=== PATIENT | female | born 1950 ===

== ENCOUNTER 2017-06-20 08:06 | Observation (INO) | payer MEDICARE, MEDICAID ==
[2017-06-20 08:12] VITALS: BMI 32.5
--- NOTE | 2017-06-20 08:38 | ED PDOC ---
HPI: General Adult Time Seen by Provider: 06/20/17 08:15 Chief Complaint (Nursing): Abdominal Pain Chief Complaint (Provider): Epigastric and chest pain History Per: Patient History/Exam Limitations: no limitations Onset/Duration Of Symptoms: Days (2) Additional Complaint(s): Patient is a 67 y/o female with a past medical history of hypertension, diabetes , and gastritis presenting to the emergency department for intermittent epigastric and chest pain since last night. Describes the pain as a burning sensation and notes having a productive cough for eight days. Reports having similar symptoms that have been ongoing for months. Denies fever, vomiting, diarrhea, syncope, weakness, or other complaints. PCP: Dr. Edilberto Srivastava Past Medical History Reviewed: Historical Data, Nursing Documentation, Vital Signs Vital Signs: Last Vital Signs Temp 97.9 F 06/21/17 12:43 Pulse 63 06/21/17 12:43 Resp 18 06/21/17 12:43 BP 131/70 06/21/17 12:43 Pulse Ox 98 06/21/17 12:43 - Medical History PMH: Anxiety, Asthma, Diabetes, Gastritis, Gall Bladder Disease, HTN, Hypercholesterolemia Denies: Chronic Kidney Disease - Surgical History Surgical History: Appendectomy, Cholecystectomy Other surgeries: Hysterectomy - Family History Family History: States: No Known Family Hx - Social History Current smoker - smoking cessation education provided: No Ex-Smoker (has not smoked in the last 12 months): No Alcohol: None Drugs: Denies - Home Medications Home Medications: Ambulatory Orders Medication Instructions Recorded Alprazolam [Xanax] 0.25 mg PO BID PRN 12/22/16 Metoprolol Succinate 100 mg PO DAILY 12/22/16 Valsartan/Hydrochlorothiazide 1 each PO DAILY 12/22/16 [Valsartan-Hctz 160-25 mg Tab] metFORMIN [glucOPHAGE] 500 mg PO DAILY 12/22/16 Esomeprazole Magnesium [Nexium] 40 mg PO DAILY 06/20/17 Fluticasone Propionate [Flonase] 2 spray LAN DAILY PRN 06/20/17 Rosuvastatin Calcium [Crestor] 10 mg PO DAILY 06/20/17 - Allergies Allergies/Adverse Reactions: Allergies Allergy/AdvReac Type Severity Reaction Status Date / Time Penicillins Allergy RASH Verified 06/20/17 08:16 FISH AdvReac RASH Verified 06/20/17 18:20 Review of Systems ROS Statement: Except As Marked, All Systems Reviewed And Found Negative Constitutional: Negative for: Fever, Weakness Cardiovascular: Positive for: Chest Pain (epigastric) Respiratory: Positive for: Cough (productive) Gastrointestinal: Negative for: Vomiting, Diarrhea Neurological: Negative for: Other (syncope) Physical Exam - Reviewed Nursing Documentation Reviewed: Yes Vital Signs Reviewed: Yes - Physical Exam Appears: Positive for: Well, Non-toxic, No Acute Distress Head Exam: Positive for: ATRAUMATIC, NORMAL INSPECTION, NORMOCEPHALIC Skin: Positive for: Normal Color, Warm, Dry Eye Exam: Positive for: Normal appearance, EOMI, PERRL ENT: Positive for: Normal ENT Inspection Neck: Positive for: Normal Cardiovascular/Chest: Positive for: Regular Rate, Rhythm. Negative for: Murmur Respiratory: Positive for: Normal Breath Sounds. Negative for: Accessory Muscle Use, Respiratory Distress Gastrointestinal/Abdominal: Positive for: Normal Exam, Soft. Negative for: Tenderness Back: Positive for: Normal Inspection Extremity: Positive for: Normal ROM. Negative for: Pedal Edema Neurologic/Psych: Positive for: Alert, Oriented (x3) - Laboratory Results Result Diagrams: 06/21/17 04:20 06/21/17 04:20 - ECG ECG: Positive for: Interpreted By Me, Viewed By Me ECG Rhythm: Positive for: Normal QRS, Sinus Rhythm. Negative for: ST/T Changes Rate: 69 O2 Sat by Pulse Oximetry: 98 (RA) Pulse Ox Interpretation: Normal Medical Decision Making Medical Decision Making: Time: 08:50 Initial impression: Chest pain and epigastric pain. Cough. Differential diagnoses include acute coronary syndrome, gastroesophageal reflux disease, and bronchitis. Initial plan: EKG Labs Chest X-ray Reevaluation 09:04 Chest x-ray reviewed. Findings noted as follows: LUNGS: No active pulmonary disease. PLEURA: No significant pleural effusion identified. No pneumothorax apparent. CARDIOVASCULAR: Normal. OSSEOUS STRUCTURES: No significant abnormalities. VISUALIZED UPPER ABDOMEN: Normal. OTHER FINDINGS: None. IMPRESSION: No interval acute cardiopulmonary disease appreciated. Scribe Attestation: Documented by Yuin Goff, acting as a scribe for Beny Garza MD. Provider Scribe Attestation: All medical record entries made by the Scribe were at my direction and personally dictated by me. I have reviewed the chart and agree that the record accurately reflects my personal performance of the history, physical exam, medical decision making, and the department course for this patient. I have also personally directed, reviewed, and agree with the discharge instructions and disposition. Disposition - Clinical Impression Clinical Impression: Chest pain - Patient ED Disposition Is Patient to be Admitted: Yes Discussed With : Jani Richardson Doctor Will See Patient In The: ED Counseled Patient/Family Regarding: Studies Performed, Diagnosis - Disposition Disposition Time: 12:50 Condition: FAIR - Pt Status Changed To: Hospital Disposition Of: Observation - POA Present On Arrival: None
[2017-06-20 09:02] LABS: BASO # 0.1 K/uL (0.0-0.2); BASO % 1.2 % (0.0-2.0); EOS # 0.3 K/uL (0.0-0.7); EOS % 3.5 % (0.0-4.0); HEMATOCRIT 37.4 % (34.0-47.0); LYMPH # 2.9 K/uL (1.0-4.3); LYMPH % 34.4 % (20.0-40.0); MEAN CELL VOLUME 87.3 fl (81.0-99.0); MEAN CORPUSCULAR HEMOGLOBIN 29.3 pg (27.0-31.0); MEAN CORPUSCULAR HGB CONC 33.6 g/dL (33.0-37.0); MEAN PLATELET VOLUME 7.8 fl (7.2-11.7); MONO # 0.7 K/uL (0.0-0.8); MONO % 8.3 % (0.0-10.0); NEUT # 4.5 K/uL (1.8-7.0); NEUT % 52.6 % (50.0-75.0); RED CELL DISTRIBUTION WIDTH 14.2 % (11.5-14.5); WHITE BLOOD COUNT 8.5 K/uL (4.8-10.8)
--- NOTE | 2017-06-20 09:05 | RAD ---
HISTORY: cough COMPARISON: Chest radiograph 12/05/2013. TECHNIQUE: Chest PA and lateral FINDINGS: LUNGS: No active pulmonary disease. PLEURA: No significant pleural effusion identified. No pneumothorax apparent. CARDIOVASCULAR: Normal. OSSEOUS STRUCTURES: No significant abnormalities. VISUALIZED UPPER ABDOMEN: Normal. OTHER FINDINGS: None. IMPRESSION: No interval acute cardiopulmonary disease appreciated.
[2017-06-20 09:23] LABS: ALB/GLOB RATIO 1.5 (1.0-2.1); ALKALINE PHOSPHATASE 91 U/L (38-126); ALT/SGPT 33 U/L (9-52); AST/SGOT 32 U/L (14-36); BILIRUBIN,TOTAL 0.5 mg/dl (0.2-1.3); BLOOD UREA NITROGEN 15 mg/dl (7-17); CALCIUM 9.5 mg/dL (8.4-10.2); CARBON DIOXIDE 28 mmol/L (22-30); CHLORIDE 93 mmol/L (98-107); GFR AFRICAN-AMERICAN > 60; GLUCOSE,RANDOM 126 mg/dL (65-105); LIPASE 246 U/L (23-300); POTASSIUM 3.3 MMOL/L (3.6-5.0); SODIUM 132 mmol/l (132-148); TOTAL PROTEIN 7.2 G/DL (6.3-8.2)
[2017-06-20] MEDS ORDERED: Potassium Chloride 20 mEq ER Tab PO ONE ×2 (12:48→16:29)
--- NOTE | 2017-06-20 13:44 | CP.PCM.HP ---
History of Present Illness - History of Present Illness History of Present Illness: 67 yo female with history of Anxiety, DM2, Asthma, HTN and HLDcame in because of midsternal chest pain since last night described like gas coming up from her stomach to her throat. Admitted put by PCP on Protonix but pain was not relieved. Present on Admission - Present on Admission Any Indicators Present on Admission: No History of DVT/PE: No History of Uncontrolled Diabetes: No Urinary Catheter: No Decubitus Ulcer Present: No Review of Systems - Review of Systems All systems: reviewed and no additional remarkable complaints except (aside from those mentioned above, 12 point system review were negative by me) Past Patient History - Infectious Disease Hx of Infectious Diseases: None - Tetanus Immunizations Tetanus Immunization: Unknown - Past Medical History & Family History Past Medical History?: Yes Past Family History: Reviewed and not pertinent - Past Social History Smoking Status: Never Smoked Alcohol: None Drugs: Denies Home Situation {Lives}: With Family - CARDIAC Hx Hypercholesterolemia: Yes Hx Hypertension: Yes - PULMONARY Hx Asthma: Yes - NEUROLOGICAL Hx Neurological Disorder: No - HEENT Hx HEENT Problems: No - RENAL Hx Chronic Kidney Disease: No - ENDOCRINE/METABOLIC Hx Endocrine Disorders: Yes Hx Diabetes Mellitus Type 2: Yes - HEMATOLOGICAL/ONCOLOGICAL Hx Blood Disorders: No - INTEGUMENTARY Hx Dermatological Problems: No - MUSCULOSKELETAL/RHEUMATOLOGICAL Hx Musculoskeletal Disorders: No - GASTROINTESTINAL Hx Gall Bladder Disease: Yes Hx Gastritis: Yes - GENITOURINARY/GYNECOLOGICAL Hx Genitourinary Disorders: No - PSYCHIATRIC Hx Anxiety: Yes - SURGICAL HISTORY Hx Appendectomy: Yes Hx Cholecystectomy: Yes - ANESTHESIA Hx Anesthesia: Yes Hx Anesthesia Reactions: No Meds Allergies/Adverse Reactions: Allergies Allergy/AdvReac Type Severity Reaction Status Date / Time Penicillins Allergy RASH Verified 06/20/17 08:16 Physical Exam - Constitutional Appears: No Acute Distress - Head Exam Head Exam: ATRAUMATIC - Eye Exam Eye Exam: absent: Scleral icterus - ENT Exam ENT Exam: Mucous Membranes Moist - Neck Exam Neck exam: Negative for: Meningismus - Respiratory Exam Respiratory Exam: absent: Rhonchi, Wheezes, Respiratory Distress - Cardiovascular Exam Cardiovascular Exam: REGULAR RHYTHM, +S1, +S2 - GI/Abdominal Exam GI & Abdominal Exam: Soft. absent: Tenderness - Rectal Exam Rectal Exam: Deferred - Neurological Exam Neurological exam: Alert, Oriented x3 - Psychiatric Exam Psychiatric exam: Normal Affect - Skin Skin Exam: Dry, Intact Results - Vital Signs Recent Vital Signs: Last Vital Signs Temp 98 F 06/20/17 12:40 Pulse 69 06/20/17 12:54 Resp 18 06/20/17 12:40 BP 134/66 06/20/17 12:40 Pulse Ox 98 06/20/17 12:54 - Labs Result Diagrams: 06/20/17 08:50 06/20/17 08:50 Labs: Laboratory Results - last 24 hr 06/20/17 06/20/17 08:50 08:50 WBC 8.5 RBC 4.28 Hgb 12.6 Hct 37.4 MCV 87.3 MCH 29.3 MCHC 33.6 RDW 14.2 Plt Count 215 MPV 7.8 Neut % (Auto) 52.6 Lymph % (Auto) 34.4 [place] % (Auto) 8.3 Eos % (Auto) 3.5 Baso % (Auto) 1.2 Neut # 4.5 Lymph # 2.9 Harvey # 0.7 Eos # 0.3 Baso # 0.1 Sodium 132 Potassium 3.3 L Chloride 93 L Carbon Dioxide 28 Anion Gap 14 BUN 15 Creatinine 0.9 Est GFR ( Amer) > 60 Est GFR (Non-Af Amer) > 60 Random Glucose 126 H Calcium 9.5 Total Bilirubin 0.5 AST 32 ALT 33 Alkaline Phosphatase 91 Troponin I < 0.0120 Total Protein 7.2 Albumin 4.3 Globulin 2.9 Albumin/Globulin Ratio 1.5 Lipase 246 Assessment & Plan (1) Chest pain Status: Acute Comment: serial Troponin and EKG. NTG SL prn. Morphine 2mg IV q 4hrs prn. ASA 81mg PO daily. Lipitor 10mg PO daily (2) Asthma Status: Acute Comment: asymptomatic. Duoneb q 4hrs prn for SOB/wheezing (3) HTN (hypertension) Status: Acute Comment: BP stable. continue Metoprolol and Valsartan/HCTZ (4) DM2 (diabetes mellitus, type 2) Status: Acute Comment: BS controlled. accuchek ACHS. Metformin 500mg PO daily. HgA1C, BMP in am (5) DVT prophylaxis Status: Acute Comment: Lovenox 40mg SC daily
--- NOTE | 2017-06-20 16:29 | CARD ---
APPROVED REPORT EKG Measurement Heart [id number] <Conclusion> Normal sinus rhythm Normal ECG
[2017-06-20] MEDS ORDERED: Alum-Mag Hydrox-Simethicone Susp (30 mL) PO PRN (22:12)
[2017-06-21 05:44] LABS: BASO # 0.1 K/uL (0.0-0.2); BASO % 0.7 % (0.0-2.0); EOS # 0.4 K/uL (0.0-0.7); EOS % 3.4 % (0.0-4.0); LYMPH # 4.2 K/uL (1.0-4.3); LYMPH % 40.2 % (20.0-40.0); MEAN CELL VOLUME 87.3 fl (81.0-99.0); MEAN CORPUSCULAR HEMOGLOBIN 29.2 pg (27.0-31.0); MEAN CORPUSCULAR HGB CONC 33.5 g/dL (33.0-37.0); MEAN PLATELET VOLUME 8.1 fl (7.2-11.7); MONO % 9.5 % (0.0-10.0); NEUT # 4.8 K/uL (1.8-7.0); NEUT % 46.2 % (50.0-75.0); RED CELL DISTRIBUTION WIDTH 14.5 % (11.5-14.5); WHITE BLOOD COUNT 10.4 K/uL (4.8-10.8)
[2017-06-21 06:03] VITALS: O2SAT 98
[2017-06-21 06:20] LABS: GLUCOSE,RANDOM 113 mg/dL (65-105)
[2017-06-21 06:21] LABS: BLOOD UREA NITROGEN 14 mg/dl (7-17); CALCIUM 9.5 mg/dL (8.4-10.2); CARBON DIOXIDE 29 mmol/L (22-30); CHLORIDE 90 mmol/L (98-107); GFR AFRICAN-AMERICAN > 60; POTASSIUM 3.4 MMOL/L (3.6-5.0); SODIUM 129 mmol/l (132-148)
[2017-06-21] MEDS ORDERED: Sodium Chloride 0.9% 1,000 ML IV SCH (07:30)
[2017-06-21 08:20] VITALS: RESP 18; TEMP 97.9
[2017-06-21] MEDS ORDERED: Enoxaparin 40 mg Syringe SC SCH (09:00)
[2017-06-21] MEDS ORDERED: Pantoprazole 40 mg EC Tab PO SCH (09:00)
[2017-06-21] MEDS ORDERED: VALSARTAN PO SCH (09:00)
[2017-06-21] MEDS ORDERED: HYDROCHLOROTHIAZIDE PO SCH (09:00)
[2017-06-21] MEDS ORDERED: Potassium Chloride 20 mEq/15 ml LIQ UD PO SCH (09:00)
[2017-06-21] MEDS ORDERED: Metoprolol Succinate 100 mg XL Tab PO SCH (09:00)
--- NOTE | 2017-06-21 09:09 | CP.PCM.DIS ---
Provider - Provider Date of Admission: 06/20/17 12:59 Attending physician: Jani Richardson MD Time Spent in preparation of Discharge (in minutes): 25 Diagnosis - Discharge Diagnosis (1) Chest pain Status: Acute Comment: pain relieved with nitroglycerin SL. pain likely due to gastritis. pt recently put on Protonix, recommend continuing with medication for improved efficacy. f/u with PMD (2) HTN (hypertension) Status: Acute Comment: continue home meds (3) Asthma Status: Acute Comment: asymptomatic. continue Flonase prn (4) DM2 (diabetes mellitus, type 2) Status: Acute Comment: blood sugars well controlled during hospital admission. continue Metformin (5) Anxiety Status: Acute Comment: continue Xanax Hospital Course - Lab Results Lab Results: Most Recent Lab Values WBC 10.4 K/uL (4.8-10.8) 06/21/17 04:20 RBC 4.24 Mil/uL (3.80-5.20) 06/21/17 04:20 Hgb 12.4 g/dL (12.0-16.0) 06/21/17 04:20 Hct 37.0 % (34.0-47.0) 06/21/17 04:20 MCV 87.3 fl (81.0-99.0) 06/21/17 04:20 MCH 29.2 pg (27.0-31.0) 06/21/17 04:20 MCHC 33.5 g/dL (33.0-37.0) 06/21/17 04:20 RDW 14.5 % (11.5-14.5) 06/21/17 04:20 Plt Count 204 K/uL (130-400) 06/21/17 04:20 MPV 8.1 fl (7.2-11.7) 06/21/17 04:20 Neut % (Auto) 46.2 % (50.0-75.0) L 06/21/17 04:20 Lymph % (Auto) 40.2 % (20.0-40.0) H 06/21/17 04:20 [place] % (Auto) 9.5 % (0.0-10.0) 06/21/17 04:20 Eos % (Auto) 3.4 % (0.0-4.0) 06/21/17 04:20 Baso % (Auto) 0.7 % (0.0-2.0) 06/21/17 04:20 Neut # 4.8 K/uL (1.8-7.0) 06/21/17 04:20 Lymph # 4.2 K/uL (1.0-4.3) 06/21/17 04:20 [place] # 1.0 K/uL (0.0-0.8) H 06/21/17 04:20 Eos # 0.4 K/uL (0.0-0.7) 06/21/17 04:20 Baso # 0.1 K/uL (0.0-0.2) 06/21/17 04:20 Sodium 129 mmol/l (132-148) L 06/21/17 04:20 Potassium 3.4 MMOL/L (3.6-5.0) L 06/21/17 04:20 Chloride 90 mmol/L (98-107) L 06/21/17 04:20 Carbon Dioxide 29 mmol/L (22-30) 06/21/17 04:20 Anion Gap 13 (10-20) 06/21/17 04:20 BUN 14 mg/dl (7-17) 06/21/17 04:20 Creatinine 0.8 mg/dL (0.7-1.2) 06/21/17 04:20 Est GFR ( Amer) > 60 06/21/17 04:20 Est GFR (Non-Af Amer) > 60 06/21/17 04:20 POC Glucose (mg/dL) 94 mg/dL (65-110) 06/21/17 05:32 Random Glucose 113 mg/dL (65-105) H 06/21/17 04:20 Calcium 9.5 mg/dL (8.4-10.2) 06/21/17 04:20 Total Bilirubin 0.5 mg/dl (0.2-1.3) 06/20/17 08:50 AST 32 U/L (14-36) 06/20/17 08:50 ALT 33 U/L (9-52) 06/20/17 08:50 Alkaline Phosphatase 91 U/L (38-126) 06/20/17 08:50 Troponin I < 0.0120 ng/mL (0.00-0.120) 06/21/17 01:09 Total Protein 7.2 G/DL (6.3-8.2) 06/20/17 08:50 Albumin 4.3 g/dL (3.5-5.0) 06/20/17 08:50 Globulin 2.9 gm/dL (2.2-3.9) 06/20/17 08:50 Albumin/Globulin Ratio 1.5 (1.0-2.1) 06/20/17 08:50 Lipase 246 U/L (23-300) 06/20/17 08:50 - Hospital Course Hospital Course: 67 y/o female with PMHx of DM II, HTN, HLD, asthma, and anxiety admitted to the hospital for epigastric and chest pain. Pt described the pain as gas-like and felt as though it was coming up from her stomach. Pt was recently prescribed Protonix for gastritis but has only been taking it a short time, approx 1-2 weeks. Pt denies experiencing F/C/N/V/SOB throughout her stay. Pt denied having any gastric or abdominal pain during her stay but admitted to feeling occasional gas and bloating at home prior to admission, and believes this was the cause of her chest discomfort. A CXR was performed which showed no acute cardiopulmonary disease, pleural effusion or pneumothorax. Serial troponins were performed with three consecutive negative values. An EKG was performed which showed a normal sinus rhythm. Pt's chest pain was treated with sublingual nitroglycerin and was resolved during her hospital stay. Pt was also given normal saline and potassium chloride to address her mild hyponatremia, hypochloremia and hypokalemia. Pt will be discharged home in stable condition and is advised to follow up with her PMD Dr. Srivastava. Discharge Exam - Head Exam Head Exam: ATRAUMATIC, NORMAL INSPECTION, NORMOCEPHALIC - Eye Exam Eye Exam: EOMI, Normal appearance, PERRL Pupil Exam: NORMAL ACCOMODATION, PERRL - ENT Exam ENT Exam: Mucous Membranes Moist - Neck Exam Neck exam: Full Rom, Normal Inspection Additional comments: non-tender, supple, no JVD - Respiratory Exam Respiratory Exam: NORMAL BREATHING PATTERN, UNREMARKABLE Additional comments: no wheezes or rales heard, no respiratory distress, no stridor - Cardiovascular Exam Cardiovascular Exam: REGULAR RHYTHM, +S1, +S2 Additional comments: no murmur, no gallop, no JVD - GI/Abdominal Exam GI & Abdominal Exam: Normal Bowel Sounds, Soft, Unremarkable Additional comments: no rebound tenderness, no distention - Rectal Exam Rectal Exam: Deferred - Extremities Exam Extremities exam: normal capillary refill, normal inspection, pedal pulses present - Back Exam Back exam: NORMAL INSPECTION - Neurological Exam Neurological exam: Alert, Oriented x3 - Psychiatric Exam Psychiatric exam: Normal Affect, Normal Mood - Skin Skin Exam: Intact, Normal Color Discharge Plan - Follow Up Plan Condition: STABLE Disposition: HOME/ ROUTINE Instructions: Gastritis (DC), Noncardiac Chest Pain (DC) Referrals: Edilberto Srivastava MD [Family Provider] -
[2017-06-21 12:44] VITALS: BP 131/70
[2017-06-21 19:49] VITALS: PULSE 69
== END 2017-06-21 15:30 | disposition home or self-care (01) ==
LOC: H.ER 08:06 → H.ERHOLD 12:59 → H.TEL 17:38
DX: R07.89 Other chest pain (principal); E87.1 Hypo-osmolality and hyponatremia; E87.6 Hypokalemia; E86.0 Dehydration; E87.8 Other disorders of electrolyte and fluid balance, not elsewhere classified; R19.7 Diarrhea, unspecified; I10 Essential (primary) hypertension; J45.909 Unspecified asthma, uncomplicated; E11.9 Type 2 diabetes mellitus without complications; F41.9 Anxiety disorder, unspecified; F32.9 Major depressive disorder, single episode, unspecified; E78.5 Hyperlipidemia, unspecified; E78.00 Pure hypercholesterolemia, unspecified; Z88.0 Allergy status to penicillin; Z91.013 Allergy to seafood
CPT/HCPCS: 36415; 71020; 80048; 80053; 82948; 83036; 83690; 84484; 85025; 93005; 99285; G0378; J1650; J7040

== ENCOUNTER 2017-12-17 19:53 | Emergency (ER) | payer MEDICARE, MEDICAID ==
[2017-12-17 19:54] VITALS: BMI 32.5
[2017-12-17 20:03] VITALS: TEMP 97.5
[2017-12-17] MEDS ORDERED: Sodium Chloride 0.9% 1,000 ML IV STA (20:22)
--- NOTE | 2017-12-17 20:29 | ED PDOC ---
HPI:Nausea, Vomiting, Diarrhea Chief Complaint (Provider): nausea/vomiting History Per: Patient History/Exam Limitations: no limitations Onset/Duration Of Symptoms: Hrs, Persistent Current Symptoms Are (Timing): Still Present Have you had recent travel within the past 21 days to any of the following countries: [place], [place], [place] or [place]?: No Context: Food Severity: Moderate Pain Scale Rating Of: 0 Quality Of Discomfort: Gas Associated Symptoms: Nausea, Vomiting Alleviating Factors: Rest Last Bowel Movement: Today Additional History Per: Patient Additional Complaint(s): 67 y/o F with DM2, HTN and Anxiety presents to clinic c/o nausea and vomiting. As per patient she started feeling nauseated, bloated, gassy right after lunch. She ate rice, lentils and eggs. She took tiff seltzer at home without improvement and due to persistent nausea since lunch she decided to come to ED, right outside the hosp she had 1 episode of NBNB vomit. Still feels nauseated. Denies fever, sick contacts, diarrhea or constipation. LBM today normal, denies melena, hematochezia. Patient states her BS are controlled and accuchecks this morning was 90s. She is taking all her meds as prescribed. <Amor Owens - Last Filed: 12/17/17 23:22> <Carlin Bynum - Last Filed: 12/18/17 01:53> Time Seen by Provider: 12/17/17 20:04 Chief Complaint (Nursing): Abdominal Pain Supervising Attending Note - Supervising Attending Note The Documented history was done by the: Physician Drier Tender Naphthalene The documented physical exam was done by the: Physician Drier Tender Naphthalene - Attestation: I have personally seen and examined this patient.: Yes I have fully participated in the care of the patient.: Yes I have reviewed all pertinent clinical information, including history, physical exam and plan: Yes <Carlin Bynum - Last Filed: 12/18/17 01:53> Past Medical History Vital Signs: Last Vital Signs Temp 97.5 F L 12/17/17 20:00 Pulse 79 12/17/17 20:00 Resp 16 12/17/17 20:00 BP 144/78 12/17/17 20:00 Pulse Ox 100 12/17/17 20:00 - Medical History PMH: Anxiety, Asthma, Diabetes, Gastritis, Gall Bladder Disease, HTN, Hypercholesterolemia Denies: Alzheimer's Disease, Anemia, Arthritis, Atrial Fibrillation, Bipolar Disorder, Bronchitis, CAD, Cardia Arrhythmia, CHF, COPD, Crohn's Disease, Dementia, Depression, Diverticulitis, Emphysema, Fractures, HIV, Hyperthyroidism , Hypothyroidism, Kidney Stones, Migraine, Mitral Valve Prolapse, Multiple Sclerosis, Osteoporosis, Pancreatitis, Paranoia, Parkinson's Disease, Peripheral Edema, Pneumonia, Post Traumatic Stress Disorder, Pulmonary Embolism , Chronic Kidney Disease, Rheumatoid Arthritis, Schizophrenia, Seizures, Sickle Cell Disease, Sexually Transmitted Disease, Sleep Apnea, TIA - Surgical History Surgical History: Appendectomy, Cholecystectomy Denies: CABG, Carotid Endarterectomy, Coronary Stent, Pacemaker, Tonsillectomy - Family History Family History: States: Unknown Family Hx <Amor Owens - Last Filed: 12/17/17 23:22> Vital Signs: Last Vital Signs Temp 97.5 F L 12/17/17 20:00 Pulse 63 12/17/17 23:40 Resp 18 12/17/17 23:40 BP 111/58 L 12/17/17 23:40 Pulse Ox 99 12/17/17 23:40 <Carlin Bynum - Last Filed: 12/18/17 01:53> - Home Medications Home Medications: Ambulatory Orders Medication Instructions Recorded Alprazolam [Xanax] 0.25 mg PO BID PRN 12/22/16 Metoprolol Succinate 100 mg PO DAILY 12/22/16 Valsartan/Hydrochlorothiazide 1 each PO DAILY 12/22/16 [Valsartan-Hctz 160-25 mg Tab] metFORMIN [glucOPHAGE] 500 mg PO DAILY 12/22/16 Esomeprazole Magnesium [Nexium] 40 mg PO DAILY 06/20/17 Fluticasone Propionate [Flonase] 2 spray LAN DAILY PRN 06/20/17 Rosuvastatin Calcium [Crestor] 10 mg PO DAILY 06/20/17 Ondansetron ODT [Zofran ODT] 4 mg PO Q6 PRN #8 odt 12/17/17 - Allergies Allergies/Adverse Reactions: Allergies Allergy/AdvReac Type Severity Reaction Status Date / Time Penicillins Allergy RASH Verified 06/20/17 08:16 FISH AdvReac RASH Verified 10/16/17 18:20 Review of Systems ROS Statement: Except As Marked, All Systems Reviewed And Found Negative Gastrointestinal: Positive for: Nausea, Vomiting, Other (gassiness, bloating) <Amor Owens - Last Filed: 12/17/17 23:22> Physical Exam - Physical Exam Appears: Positive for: Well, No Acute Distress Skin: Positive for: Normal Color, Warm Eye Exam: Positive for: PERRL ENT: Negative for: Pharyngeal Erythema, Tonsillar Exudate Neck: Positive for: Painless ROM Cardiovascular/Chest: Positive for: Regular Rate, Rhythm, Chest Non Tender. Negative for: Edema, Murmur Respiratory: Positive for: Normal Breath Sounds. Negative for: Crackles, Rales , Rhonchi, Wheezing, Respiratory Distress Gastrointestinal/Abdominal: Positive for: Normal Exam, Soft. Negative for: Tenderness, Distended, Guarding, Rebound Extremity: Negative for: Tenderness, Calf Tenderness Neurologic/Psych: Positive for: Alert, Oriented. Negative for: Motor/Sensory Deficits <Amor Owens - Last Filed: 12/17/17 23:22> - Laboratory Results Result Diagrams: 12/17/17 20:45 12/17/17 20:45 - ECG O2 Sat by Pulse Oximetry: 100 - Progress ED Course And Treament: Revaluated at 11PM Patient's symptoms resolved after Zofran/Pepcid/IV fluids She has microscopic hematuria on UA and slightly elevated AST and WBC No sings of source of infection and patient is afebrile Advised to F/u with PMD for further work up Stable to DC home <Amor Owens - Last Filed: 12/17/17 23:22> - Laboratory Results Result Diagrams: 12/17/17 20:45 12/17/17 20:45 <Carlin Bynum - Last Filed: 12/18/17 01:53> Medical Decision Making Medical Decision Makin67 y/o with Hx of DM,HTN presents with c/o nausea/vomiting/bloating Gastroenteritis vs gastritis Vomiting, bloating, nausea no abd pain accuchekc at ED 115 VS WNL no acute distress Hx of cholecystectomy and appendectomy R/O pancreatitis/electrolyte imbalance F/U CMP and Lipase IV fluids, Pepcid and Zofran <Amor Owens - Last Filed: 12/17/17 23:22> Disposition - Patient ED Disposition Is Patient to be Admitted: No - Disposition Disposition: Routine/Home Disposition Time: 23:05 <Amor Owens - Last Filed: 12/17/17 23:22> <Carlin Bynum - Last Filed: 12/18/17 01:53> - Clinical Impression Clinical Impression: Gastritis - Disposition Condition: STABLE Additional Instructions: F/U with PMD in 2-3 days return to ED if abd pain, persistent vomiting or any other concerns Prescriptions: Ondansetron ODT [Zofran ODT] 4 mg PO Q6 PRN #8 odt PRN Reason: Nausea/Vomiting Instructions: Gastritis Forms: [facility] ([place]) Print Language: SLOVENIAN
[2017-12-17 20:56] LABS: BASO # 0.1 K/uL (0.0-0.2); BASO % 0.7 % (0.0-2.0); EOS # 0.2 K/uL (0.0-0.7); EOS % 1.4 % (0.0-4.0); HEMOGLOBIN 12.8 g/dL (12.0-16.0); LYMPH # 3.1 K/uL (1.0-4.3); LYMPH % 19.7 % (20.0-40.0); MEAN CELL VOLUME 87.7 fl (81.0-99.0); MEAN CORPUSCULAR HEMOGLOBIN 29.5 pg (27.0-31.0); MEAN CORPUSCULAR HGB CONC 33.6 g/dL (33.0-37.0); MEAN PLATELET VOLUME 7.9 fl (7.2-11.7); MONO % 6.6 % (0.0-10.0); NEUT # 11.3 K/uL (1.8-7.0); NEUT % 71.6 % (50.0-75.0); NRBC % 0.1 % (0.0-0.0); RBC 4.35 Mil/uL (3.80-5.20); RED CELL DISTRIBUTION WIDTH 14.2 % (11.5-14.5); WHITE BLOOD COUNT 15.7 K/uL (4.8-10.8)
[2017-12-17 21:05] LABS: SQUAMOUS EPITHIAL 6 /hpf (0-5); URINE BACTERIA OCC (<OCC); URINE BILIRUBIN NEGATIVE (NEGATIVE); URINE BLOOD SMALL (NEGATIVE); URINE CLARITY CLOUDY (Clear); URINE COLOR YELLOW (YELLOW); URINE GLUCOSE (UA) NEG (Normal); URINE HYALINE CAST 0-2 /hpf (0-2); URINE LEUKOCYTE ESTERASE NEG Leu/uL (Negative); URINE PROTEIN 30 mg/dL (NEGATIVE); URINE UROBILINOGEN 0.2-1.0 mg/dL (0.2-1.0)
[2017-12-17 22:36] LABS: BLOOD UREA NITROGEN 22 mg/dl (7-17); GFR AFRICAN-AMERICAN > 60; GFR NON-AFRICAN AMERICAN 55
[2017-12-17 22:37] LABS: ALB/GLOB RATIO 1.3 (1.0-2.1); ALBUMIN 4.3 g/dL (3.5-5.0); AST/SGOT 61 U/L (14-36); CALCIUM 9.5 mg/dL (8.4-10.2)
[2017-12-17 22:38] LABS: ALT/SGPT 38 U/L (9-52); LIPASE 269 U/L (23-300)
[2017-12-17 23:20] VITALS: BP 111/58; PULSE 63
[2017-12-17 23:41] VITALS: RESP 18; O2SAT 99
--- NOTE | 2017-12-18 09:35 | CARD ---
APPROVED REPORT EKG Measurement Heart [id number] <Conclusion> Normal sinus rhythm Normal ECG
== END 2017-12-17 23:30 | disposition home or self-care (01) ==
LOC: H.ER 19:53
DX: K29.70 Gastritis, unspecified, without bleeding (principal); E11.9 Type 2 diabetes mellitus without complications; E78.00 Pure hypercholesterolemia, unspecified; I10 Essential (primary) hypertension; Z79.84 Long term (current) use of oral hypoglycemic drugs; Z88.0 Allergy status to penicillin
CPT/HCPCS: 80053; 81003; 82948; 83690; 85025; 87086; 93005; 96360; 96361; 99284; J2405; J7040

== ENCOUNTER 2018-02-12 19:33 | Observation (INO) | payer MEDICARE, MEDICAID ==
[2018-02-12 19:34] VITALS: BMI 32.5
--- NOTE | 2018-02-12 20:29 | ED PDOC ---
HPI: Chest Pain Time Seen by Provider: 02/12/18 20:28 Chief Complaint (Nursing): Palpitations Chief Complaint (Provider): palpitations History Per: Patient (67 y/o female h/o DM/HTN/HLD here with palpitations since yesterday; denies any chest pain/sob. Denies any smoking/drugs/alcohol. Has had stress test evaluation by Dr. Velasquez in past wnl. ) Past Medical History Reviewed: Historical Data, Nursing Documentation, Vital Signs Vital Signs: Last Vital Signs Temp 97.6 F 02/12/18 19:43 Pulse 68 02/12/18 21:41 Resp 18 02/12/18 21:41 BP 150/79 02/12/18 21:41 Pulse Ox 99 02/12/18 21:41 - Medical History PMH: Anxiety, Asthma, Diabetes, Gastritis, Gall Bladder Disease, HTN, Hypercholesterolemia Denies: Alzheimer's Disease, Anemia, Arthritis, Atrial Fibrillation, Bipolar Disorder, Bronchitis, CAD, Cardia Arrhythmia, CHF, COPD, Crohn's Disease, Dementia, Depression, Diverticulitis, Emphysema, Fractures, HIV, Hyperthyroidism , Hypothyroidism, Kidney Stones, Migraine, Mitral Valve Prolapse, Multiple Sclerosis, Osteoporosis, Pancreatitis, Paranoia, Parkinson's Disease, Peripheral Edema, Pneumonia, Post Traumatic Stress Disorder, Pulmonary Embolism , Chronic Kidney Disease, Rheumatoid Arthritis, Schizophrenia, Seizures, Sickle Cell Disease, Sexually Transmitted Disease, Sleep Apnea, TIA - Surgical History Surgical History: Appendectomy, Cholecystectomy Denies: CABG, Carotid Endarterectomy, Coronary Stent, Pacemaker, Tonsillectomy - Family History Family History: States: Unknown Family Hx - Home Medications Home Medications: Ambulatory Orders Medication Instructions Recorded Alprazolam [Xanax] 0.25 mg PO BID PRN 12/22/16 Metoprolol Succinate 100 mg PO DAILY 12/22/16 Valsartan/Hydrochlorothiazide 1 each PO DAILY 12/22/16 [Valsartan-Hctz 160-25 mg Tab] metFORMIN [glucOPHAGE] 500 mg PO DAILY 12/22/16 Esomeprazole Magnesium [Nexium] 40 mg PO DAILY 06/20/17 Fluticasone Propionate [Flonase] 2 spray LAN DAILY PRN 06/20/17 Rosuvastatin Calcium [Crestor] 10 mg PO DAILY 06/20/17 - Allergies Allergies/Adverse Reactions: Allergies Allergy/AdvReac Type Severity Reaction Status Date / Time Penicillins Allergy RASH Verified 02/12/18 19:43 FISH AdvReac RASH Verified 02/12/18 19:43 Review of Systems ROS Statement: Except As Marked, All Systems Reviewed And Found Negative Physical Exam - Reviewed Nursing Documentation Reviewed: Yes Vital Signs Reviewed: Yes - Physical Exam Appears: Positive for: Well, Non-toxic, No Acute Distress Head Exam: Positive for: ATRAUMATIC, NORMAL INSPECTION, NORMOCEPHALIC Skin: Positive for: Normal Color, Warm, DRY Eye Exam: Positive for: EOMI, Normal appearance, PERRL ENT: Positive for: Normal ENT Inspection Neck: Positive for: Normal, Painless ROM Cardiovascular/Chest: Positive for: Regular Rate, Rhythm Respiratory: Positive for: CNT, Normal Breath Sounds Gastrointestinal/Abdominal: Positive for: Normal Exam, Soft Back: Positive for: Normal Inspection Extremity: Positive for: Normal ROM Neurologic/Psych: Positive for: Alert, Oriented - Laboratory Results Result Diagrams: 02/12/18 20:42 02/12/18 20:42 - ECG ECG Rhythm: Positive for: Sinus Rhythm (nsr 66bpm; no ectopy no acute changes) O2 Sat by Pulse Oximetry: 100 - Progress ED Course And Treament: Patient noted to have bigeminy on monitor and storage bin tender. ASA 324 mg x 1 dose cxr: no obvious infiltrate kdur 40 meq x 1 dose d/w Dr. Briscoe. Disposition - Clinical Impression Clinical Impression: Palpitations, Bigeminy - Patient ED Disposition Is Patient to be Admitted: Yes - Disposition Disposition Time: 22:30 Condition: FAIR - Pt Status Changed To: Hospital Disposition Of: Observation
[2018-02-12 20:46] LABS: BASO % 0.1 % (0.0-2.0); EOS # 0.3 K/uL (0.0-0.7); EOS % 2.5 % (0.0-4.0); HEMOGLOBIN 13.2 g/dL (12.0-16.0); LYMPH # 4.4 K/uL (1.0-4.3); LYMPH % 41.6 % (20.0-40.0); MEAN CELL VOLUME 86.9 fl (81.0-99.0); MEAN CORPUSCULAR HEMOGLOBIN 28.9 pg (27.0-31.0); MEAN CORPUSCULAR HGB CONC 33.3 g/dL (33.0-37.0); MEAN PLATELET VOLUME 7.8 fl (7.2-11.7); MONO # 1.1 K/uL (0.0-0.8); NEUT # 4.9 K/uL (1.8-7.0); NEUT % 45.8 % (50.0-75.0); RBC 4.56 Mil/uL (3.80-5.20); RED CELL DISTRIBUTION WIDTH 14.6 % (11.5-14.5); WHITE BLOOD COUNT 10.7 K/uL (4.8-10.8)
[2018-02-12 20:56] LABS: BLOOD UREA NITROGEN 15 mg/dl (7-17); CALCIUM 9.2 mg/dL (8.4-10.2); GFR AFRICAN-AMERICAN > 60; GFR NON-AFRICAN AMERICAN 55
[2018-02-12] MEDS ORDERED: Potassium Chloride 20 mEq ER Tab PO ONE ×2 (22:01→22:50)
--- NOTE | 2018-02-12 22:55 | CP.PCM.HP ---
History of Present Illness - History of Present Illness History of Present Illness: PMD: Edilberto Srivastava MD Chief Complaint: Palpitation The patient was seen and examined in the ED with her Grand daughter present HPI: She is a 67 years old female with hx of Dm II, Asthma, HTN and HLD who comes with two days of intermittent palpitation. No Chest pain nor tightness, No SOB except when she gets an Asthma attack. No diaphoresis, nausea , vomits. No illegal drugs nor alcohol. She has seen her Aluminum Sheet Cutter Dr Tobias in the past for chest pain, when a stress test was done. This was within normal limits. PMH: Anxiety, Asthma, DM II; Gastritis, Gall Bladder Disease, HTN, HLD; PSH: Appendectomy; Cholecystectomy SH: Live with Family; Never Smoked; No illegal drug use; No Alcohol FH: States: Unknown Family Hx Allergies: PCN Medication: Reviewed Present on Admission - Present on Admission Any Indicators Present on Admission: No History of DVT/PE: No History of Uncontrolled Diabetes: No Urinary Catheter: No Decubitus Ulcer Present: No Review of Systems - Constitutional Constitutional: absent: Anorexia, Chills, Fatigue, Fever, Headache - EENT Eyes: Requires Corrective Lenses. absent: Diplopia, Dry Eye Ears: absent: Decreased Hearing, Ear Discharge, Tinnitus Nose/Mouth/Throat: absent: Epistaxis, Nasal Congestion, Nasal Discharge, Sinus Pain, Sinus Pressure - Cardiovascular Cardiovascular: Palpitations. absent: Chest Pain, Dyspnea, Edema - Respiratory Respiratory: absent: Cough, Dyspnea, Wheezing - Gastrointestinal Gastrointestinal: Nausea. absent: Abdominal Pain, Constipation, Diarrhea, Vomiting - Genitourinary Genitourinary: absent: Dysuria, Flank Pain, Urinary Frequency - Musculoskeletal Musculoskeletal: absent: Joint Swelling, Neck Pain, Stiffness - Integumentary Integumentary: absent: Pruritus, Rash, Skin Ulcer, Sores, Striae, Swelling - Neurological Neurological: absent: Confusion, Dizziness, Focal Weakness, Weakness - Psychiatric Psychiatric: absent: Anxiety, Depression, Panic Attacks - Endocrine Endocrine: absent: Palpitations, Polydipsia, Polyphagia, Polyuria - Hematologic/Lymphatic Hematologic: absent: Easy Bleeding, Easy Bruising Past Patient History - Infectious Disease Hx of Infectious Diseases: None - Tetanus Immunizations Tetanus Immunization: Unknown - Past Medical History & Family History Past Medical History?: Yes - Past Social History Smoking Status: Never Smoked Chewing Tobacco Use: No Cigar Use: No Alcohol: None Drugs: Denies Home Situation {Lives}: With Family - CARDIAC Hx Atrial Fibrillation: No Hx Cardia Arrhythmia: No Hx Congestive Heart Failure: No Hx Hypercholesterolemia: Yes Hx Hypertension: Yes Hx Mitral Valve Prolapse: No Hx Pacemaker: No Hx Peripheral Edema: No - PULMONARY Hx Asthma: Yes Hx Bronchitis: No Hx Chronic Obstructive Pulmonary Disease (COPD): No Hx Emphysema: No Hx Pneumonia: No Hx Pulmonary Embolism: No Hx Sleep Apnea: No - NEUROLOGICAL Hx Alzheimer's Disease: No Hx Dementia: No Hx Migraine: No Hx Multiple Sclerosis: No Hx Parkinson's Disease: No Hx Seizures: No Hx Transient Ischemic Attacks (TIA): No - HEENT Hx HEENT Problems: No Hx Blind: No Hx Cataracts: No Hx Deafness: No Hx Difficulty Chewing: No Hx Epistaxis: No Hx Glaucoma: No Hx Macular Degeneration: No - RENAL Hx Chronic Kidney Disease: No Hx Kidney Stones: No - ENDOCRINE/METABOLIC Hx Hyperthyroidism: No Hx Hypothyroidism: No - HEMATOLOGICAL/ONCOLOGICAL Hx Anemia: No Hx Human Immunodeficiency Virus (HIV): No Hx Sickle Cell Disease: No - INTEGUMENTARY Hx Dermatological Problems: No Hx Basil Cell: No Hx Tobar: No Hx Cellulitis: No Hx Eczema: No Hx Melanoma: No Hx Psoriasis: No Hx Squamous Cell: No - MUSCULOSKELETAL/RHEUMATOLOGICAL Hx Arthritis: No Hx Fractures: No Hx Osteoporosis: No Hx Rheumatoid Arthritis: No - GASTROINTESTINAL Hx Crohn's Disease: No Hx Diverticulitis: No Hx Gall Bladder Disease: Yes Hx Gastritis: Yes Hx Pancreatitis: No - GENITOURINARY/GYNECOLOGICAL Hx Sexually Transmitted Disorders: No - PSYCHIATRIC Hx Anxiety: Yes Hx Bipolar Disorder: No Hx Depression: No Hx Paranoia: No Hx Post Traumatic Stress Disorder: No Hx Schizophrenia: No - SURGICAL HISTORY Hx Appendectomy: Yes Hx Carotid Endarterectomy: No Hx Cholecystectomy: Yes Hx Coronary Artery Bypass Graft: No Hx Coronary Stent: No Hx Tonsillectomy: No - ANESTHESIA Hx Anesthesia: Yes Hx Anesthesia Reactions: No Hx Malignant Hyperthermia: No Meds Allergies/Adverse Reactions: Allergies Allergy/AdvReac Type Severity Reaction Status Date / Time Penicillins Allergy RASH Verified 02/12/18 19:43 FISH AdvReac RASH Verified 02/12/18 19:43 Physical Exam - Constitutional Appears: No Acute Distress - Head Exam Head Exam: ATRAUMATIC, NORMAL INSPECTION, NORMOCEPHALIC - Eye Exam Eye Exam: EOMI, Normal appearance Pupil Exam: NORMAL ACCOMODATION, PERRL - ENT Exam ENT Exam: Mucous Membranes Moist, Normal Exam, Normal External Ear Exam, Normal Oropharynx - Neck Exam Neck exam: Positive for: Full Rom, Normal Inspection. Negative for: Lymphadenopathy, Tenderness - Respiratory Exam Respiratory Exam: Clear to Auscultation Bilateral. absent: Rales, Rhonchi, Wheezes - Cardiovascular Exam Cardiovascular Exam: REGULAR RHYTHM, RRR, +S1, +S2. absent: Gallop, JVD - GI/Abdominal Exam GI & Abdominal Exam: Normal Bowel Sounds, Soft. absent: Mass, Organomegaly, Tenderness - Rectal Exam Rectal Exam: Deferred - Extremities Exam Extremities exam: Positive for: full ROM, normal inspection. Negative for: pedal edema, tenderness - Back Exam Back exam: NORMAL INSPECTION. absent: CVA tenderness (L), CVA tenderness (R) - Neurological Exam Neurological exam: Alert, CN II-XII Intact, Oriented x3, Reflexes Normal - Psychiatric Exam Psychiatric exam: Normal Affect, Normal Mood - Skin Skin Exam: Dry, Normal Color, Warm Results - Vital Signs Recent Vital Signs: Last Vital Signs Temp 97.6 F 02/12/18 19:43 Pulse 68 02/12/18 21:41 Resp 18 02/12/18 21:41 BP 150/79 02/12/18 21:41 Pulse Ox 100 02/12/18 22:42 - Labs Result Diagrams: 02/12/18 20:42 02/12/18 20:42 Labs: Laboratory Results - last 24 hr 02/12/18 02/12/18 20:42 20:42 WBC 10.7 RBC 4.56 Hgb 13.2 Hct 39.6 MCV 86.9 MCH 28.9 MCHC 33.3 RDW 14.6 H Plt Count 249 MPV 7.8 Neut % (Auto) 45.8 L Lymph % (Auto) 41.6 H [place] % (Auto) 10.0 Eos % (Auto) 2.5 Baso % (Auto) 0.1 Neut # (Auto) 4.9 Lymph # (Auto) 4.4 H [place] # (Auto) 1.1 H Eos # (Auto) 0.3 Baso # (Auto) 0.0 Sodium 132 Potassium 3.4 L Chloride 91 L Carbon Dioxide 26 Anion Gap 18 BUN 15 Creatinine 1.0 Est GFR ( Amer) > 60 Est GFR (Non-Af Amer) 55 Random Glucose 107 H Calcium 9.2 Magnesium 1.9 Troponin I < 0.0120 TSH 3rd Generation 1.70 - EKG Data EKG comments: NSR 66/min - Imaging and Cardiology Chest x-ray Status: Image reviewed by me Additional comment: No Infiltrate Assessment & Plan - Assessment and Plan (Free Text) Assessment: #. Palpitation #. Hypokalemia #. Anxiety #. HTN #. DM II #. Asthma Plan: 67 years old female with hx of Dm II, Asthma, HTN and HLD who comes with two days of intermittent palpitation. No Chest pain nor tightness, No SOB except when she gets an Asthma attack. No diaphoresis, nausea, vomits. No illegal drugs nor alcohol. She has seen her Aluminum Sheet Cutter Dr Tobias in the past for chest pain, when a stress test was done. This was within normal limits. #. Palpitation etiology unclear, electrolyte imbalance vs anxiety vs dysrrhythmia - consult cardiology Dr Lyn - Telemetry monitoring #. Hypokalemia secondary to HCTZ and Albuterol - Potassium replaced with KCL - Hold HCTZ - Follow Elctrolytes #. Anxiety - Xanax #. HTN - Valsartan/ Metoprolol #. DM II - Insulin Lispro sliding scale according to accucheck #. DVT prophylaxis with Lovenox #. Code Status: Full - Date & Time Date: 02/12/18 Time: 22:55
[2018-02-13 06:11] LABS: PARTIAL THROMBOPLASTIN TIME 28.1 Seconds (25.6-37.1); PROTHROMBIN TIME 11.4 Seconds (9.8-13.1)
[2018-02-13 06:18] LABS: BLOOD UREA NITROGEN 16 mg/dl (7-17); GFR AFRICAN-AMERICAN > 60; GFR NON-AFRICAN AMERICAN > 60
[2018-02-13] MEDS ORDERED: Insulin Lispro (humaLOG) 100 Units/ml Inj SC SCH (07:30)
[2018-02-13] MEDS ORDERED: Metoprolol Succinate 100 mg XL Tab PO SCH (09:00)
[2018-02-13] MEDS ORDERED: Pantoprazole 40 mg EC Tab PO SCH (09:00)
[2018-02-13] MEDS ORDERED: Enoxaparin 40 mg Syringe SC SCH (09:00)
[2018-02-13] MEDS ORDERED: Potassium Chloride 20 mEq ER Tab PO ONE (09:15)
--- NOTE | 2018-02-13 09:15 | CP.PCM.CON ---
History of Present Illness - History of Present Illness History of Present Illness: this 67-year- old chronically overweight hypertensive diabetic female was so has bronchial asthma and uses broncho-dilator inhalation treatment every day came to the emergency room complaining of intermittent palpitations. She denies any sensation of racing of her heart. She is not a smoker and has never experienced any chest pain or myocardial infarction or symptoms of congestive cardiac failure. Her sensation of palpitations are not accompanied by any dyspnea or lightheadedness. The patient had undergone a myocardial perfusion study and echocardiogram in April of last year. Physical examination shows a middle aged pleasant female who is lying comfortably in bed and her telemetry shows intermittent isolated premature ventricular beats. There is no repeated to atrial or ventricular ectopy. Her heart rate was 58 bpm and regular while taking beta blockers and her blood pressure kole 134/74 mmHg. Her jugular venous pressure was not elevated and there was no edema or lower extremity. Her pedal pulses were feeble. There were no carotid bruits. The apex was not palpable. The first and second heart sounds were normal. There was no murmur or gallop. There were no rales. Her electrocardiogram showed sinus rhythm with nonspecific ST changes there were no Q waves on the electrocardiogram. Review off her myocardial perfusion study as well as echocardiogram in April of last year showed no evidence of myocardial ischemia and a preserved left ventricular systolic function with no significant valve abnormalities. Her labs were reviewed. Her troponin levels were within normal limits indicating that there was no myocyte injury. Impression: palpitations. Prolonged period of telemetry observation has not shown any sustained tachyarrhythmia. echocardiogram shows preserved left ventricular systolic function and myocardial perfusion study shows no evidence of myocardial ischemia. The possibility to be kept in mind his broncho-dilator therapy may induce atrial tachycardias. The patient may be allowed to return home to continue her outpatient management. Past Patient History - Infectious Disease Hx of Infectious Diseases: None - Tetanus Immunizations Tetanus Immunization: Unknown - Past Medical History & Family History Past Medical History?: Yes - Past Social History Smoking Status: Never Smoked Chewing Tobacco Use: No Cigar Use: No Alcohol: None Drugs: Denies Home Situation {Lives}: With Family - CARDIAC Hx Atrial Fibrillation: No Hx Cardia Arrhythmia: No Hx Congestive Heart Failure: No Hx Hypercholesterolemia: Yes Hx Hypertension: Yes Hx Mitral Valve Prolapse: No Hx Pacemaker: No Hx Peripheral Edema: No - PULMONARY Hx Asthma: Yes Hx Bronchitis: No Hx Chronic Obstructive Pulmonary Disease (COPD): No Hx Emphysema: No Hx Pneumonia: No Hx Pulmonary Embolism: No Hx Sleep Apnea: No - NEUROLOGICAL Hx Alzheimer's Disease: No Hx Dementia: No Hx Migraine: No Hx Multiple Sclerosis: No Hx Parkinson's Disease: No Hx Seizures: No Hx Transient Ischemic Attacks (TIA): No - HEENT Hx HEENT Problems: No Hx Blind: No Hx Cataracts: No Hx Deafness: No Hx Difficulty Chewing: No Hx Epistaxis: No Hx Glaucoma: No Hx Macular Degeneration: No - RENAL Hx Chronic Kidney Disease: No Hx Kidney Stones: No - ENDOCRINE/METABOLIC Hx Hyperthyroidism: No Hx Hypothyroidism: No - HEMATOLOGICAL/ONCOLOGICAL Hx Anemia: No Hx Human Immunodeficiency Virus (HIV): No Hx Sickle Cell Disease: No - INTEGUMENTARY Hx Dermatological Problems: No Hx Basil Cell: No Hx Tobar: No Hx Cellulitis: No Hx Eczema: No Hx Melanoma: No Hx Psoriasis: No Hx Squamous Cell: No - MUSCULOSKELETAL/RHEUMATOLOGICAL Hx Arthritis: No Hx Fractures: No Hx Osteoporosis: No Hx Rheumatoid Arthritis: No - GASTROINTESTINAL Hx Crohn's Disease: No Hx Diverticulitis: No Hx Gall Bladder Disease: Yes Hx Gastritis: Yes Hx Pancreatitis: No - GENITOURINARY/GYNECOLOGICAL Hx Sexually Transmitted Disorders: No - PSYCHIATRIC Hx Anxiety: Yes Hx Bipolar Disorder: No Hx Depression: No Hx Paranoia: No Hx Post Traumatic Stress Disorder: No Hx Schizophrenia: No - SURGICAL HISTORY Hx Appendectomy: Yes Hx Carotid Endarterectomy: No Hx Cholecystectomy: Yes Hx Coronary Artery Bypass Graft: No Hx Coronary Stent: No Hx Tonsillectomy: No - ANESTHESIA Hx Anesthesia: Yes Hx Anesthesia Reactions: No Hx Malignant Hyperthermia: No Meds Allergies/Adverse Reactions: Allergies Allergy/AdvReac Type Severity Reaction Status Date / Time Penicillins Allergy RASH Verified 02/12/18 19:43 FISH AdvReac RASH Verified 02/12/18 19:43 - Medications Medications: Current Medications Alprazolam (Xanax) 0.25 mg PO BID PRN PRN Reason: Anxiety Stop: 02/19/18 22:41 Atorvastatin Calcium (Lipitor) 20 mg PO DAILY [facility] Last Admin: 02/13/18 08:39 Dose: 20 mg Enoxaparin Sodium (Lovenox) 40 mg SC DAILY JONES PRN Reason: Protocol Last Admin: 02/13/18 08:39 Dose: 40 mg Fluticasone Propionate (Flonase) 2 spr LAN DAILY PRN PRN Reason: Allergy symptoms Insulin Human Lispro (Humalog) 0 units SC ACHS [facility] PRN Reason: Protocol Last Admin: 02/13/18 08:08 Dose: Not Given Metformin HCl (Glucophage) 500 mg PO DAILY [facility] Last Admin: 02/13/18 08:39 Dose: 500 mg Metoprolol Succinate (Toprol Xl) 100 mg PO DAILY [facility] Pantoprazole Sodium (Protonix Ec Tab) 40 mg PO DAILY [facility] Last Admin: 02/13/18 08:39 Dose: 40 mg Valsartan (Diovan) 160 mg PO DAILY [facility] Last Admin: 02/13/18 08:39 Dose: 160 mg Results - Vital Signs Recent Vital Signs: Last Vital Signs Temp 97.5 F L 02/13/18 08:02 Pulse 57 L 02/13/18 08:02 Resp 18 02/13/18 08:02 BP 120/72 02/13/18 08:02 Pulse Ox 99 02/13/18 08:02 - Labs Result Diagrams: 02/12/18 20:42 02/13/18 05:00 Labs: Laboratory Results - last 24 hr 02/12/18 02/12/18 02/13/18 20:42 20:42 05:00 WBC 10.7 RBC 4.56 Hgb 13.2 Hct 39.6 MCV 86.9 MCH 28.9 MCHC 33.3 RDW 14.6 H Plt Count 249 MPV 7.8 Neut % (Auto) 45.8 L Lymph % (Auto) 41.6 H [place] % (Auto) 10.0 Eos % (Auto) 2.5 Baso % (Auto) 0.1 Neut # (Auto) 4.9 Lymph # (Auto) 4.4 H [place] # (Auto) 1.1 H Eos # (Auto) 0.3 Baso # (Auto) 0.0 PT INR APTT Sodium 132 130 L Potassium 3.4 L 3.4 L Chloride 91 L 89 L Carbon Dioxide 26 32 H Anion Gap 18 12 BUN 15 16 Creatinine 1.0 0.9 Est GFR ( Amer) > 60 > 60 Est GFR (Non-Af Amer) 55 > 60 POC Glucose (mg/dL) Random Glucose 107 H 105 Calcium 9.2 9.0 Magnesium 1.9 Troponin I < 0.0120 TSH 3rd Generation 1.70 02/13/18 02/13/18 02/13/18 05:00 05:22 07:44 WBC RBC Hgb Hct MCV MCH MCHC RDW Plt Count MPV Neut % (Auto) Lymph % (Auto) [place] % (Auto) Eos % (Auto) Baso % (Auto) Neut # (Auto) Lymph # (Auto) [place] # (Auto) Eos # (Auto) Baso # (Auto) PT 11.4 INR 1.0 APTT 28.1 Sodium Potassium Chloride Carbon Dioxide Anion Gap BUN Creatinine Est GFR ( Amer) Est GFR (Non-Af Amer) POC Glucose (mg/dL) 97 Random Glucose Calcium Magnesium Troponin I < 0.0120 TSH 3rd Generation
--- NOTE | 2018-02-13 09:17 | RAD ---
HISTORY: palpitations COMPARISON: Chest radiographs 06/20/2017. FINDINGS: LUNGS: No active pulmonary disease. PLEURA: No significant pleural effusion identified, no pneumothorax apparent. CARDIOVASCULAR: Normal. OSSEOUS STRUCTURES: No significant abnormalities. VISUALIZED UPPER ABDOMEN: Normal. OTHER FINDINGS: None. IMPRESSION: No interval acute cardiopulmonary disease appreciated.
[2018-02-13 11:11] LABS: BLOOD UREA NITROGEN 14 mg/dl (7-17); CALCIUM 9.3 mg/dL (8.4-10.2); GFR AFRICAN-AMERICAN > 60; GFR NON-AFRICAN AMERICAN > 60
[2018-02-13 12:09] VITALS: BP 116/70; PULSE 62; RESP 20; TEMP 97.4; O2SAT 98
--- NOTE | 2018-02-13 12:23 | CP.PCM.DIS ---
Provider - Provider Date of Admission: 02/12/18 22:23 Attending physician: London Briscoe Primary care physician: Dr Srivastava Consults: Cardio: Dr Bahena Time Spent in preparation of Discharge (in minutes): 30 Diagnosis - Discharge Diagnosis (1) Palpitations Status: Acute (2) Anxiety Status: Acute (3) Asthma Status: Chronic Comment: mild intermittent (4) DM2 (diabetes mellitus, type 2) Status: Chronic (5) HTN (hypertension) Status: Chronic Hospital Course - Lab Results Lab Results: Most Recent Lab Values WBC 10.7 K/uL (4.8-10.8) 02/12/18 20:42 RBC 4.56 Mil/uL (3.80-5.20) 02/12/18 20:42 Hgb 13.2 g/dL (12.0-16.0) 02/12/18 20:42 Hct 39.6 % (34.0-47.0) 02/12/18 20:42 MCV 86.9 fl (81.0-99.0) 02/12/18 20:42 MCH 28.9 pg (27.0-31.0) 02/12/18 20:42 MCHC 33.3 g/dL (33.0-37.0) 02/12/18 20:42 RDW 14.6 % (11.5-14.5) H 02/12/18 20:42 Plt Count 249 K/uL (130-400) 02/12/18 20:42 MPV 7.8 fl (7.2-11.7) 02/12/18 20:42 Neut % (Auto) 45.8 % (50.0-75.0) L 02/12/18 20:42 Lymph % (Auto) 41.6 % (20.0-40.0) H 02/12/18 20:42 [place] % (Auto) 10.0 % (0.0-10.0) 02/12/18 20:42 Eos % (Auto) 2.5 % (0.0-4.0) 02/12/18 20:42 Baso % (Auto) 0.1 % (0.0-2.0) 02/12/18 20:42 Neut # (Auto) 4.9 K/uL (1.8-7.0) 02/12/18 20:42 Lymph # (Auto) 4.4 K/uL (1.0-4.3) H 02/12/18 20:42 [place] # (Auto) 1.1 K/uL (0.0-0.8) H 02/12/18 20:42 Eos # (Auto) 0.3 K/uL (0.0-0.7) 02/12/18 20:42 Baso # (Auto) 0.0 K/uL (0.0-0.2) 02/12/18 20:42 PT 11.4 Seconds (9.8-13.1) 02/13/18 05:00 INR 1.0 (0.9-1.2) 02/13/18 05:00 APTT 28.1 Seconds (25.6-37.1) 02/13/18 05:00 Sodium 130 mmol/l (132-148) L 02/13/18 10:47 Potassium 3.3 MMOL/L (3.6-5.0) L 02/13/18 10:47 Chloride 90 mmol/L (98-107) L 02/13/18 10:47 Carbon Dioxide 28 mmol/L (22-30) 02/13/18 10:47 Anion Gap 15 (10-20) 02/13/18 10:47 BUN 14 mg/dl (7-17) 02/13/18 10:47 Creatinine 0.8 mg/dl (0.7-1.2) 02/13/18 10:47 Est GFR ( Amer) > 60 02/13/18 10:47 Est GFR (Non-Af Amer) > 60 02/13/18 10:47 POC Glucose (mg/dL) 139 mg/dL (65-110) H 02/13/18 11:35 Random Glucose 141 mg/dL (65-105) H 02/13/18 10:47 Calcium 9.3 mg/dL (8.4-10.2) 02/13/18 10:47 Magnesium 1.8 MG/DL (1.6-2.3) 02/13/18 10:47 Troponin I < 0.0120 ng/mL (0.00-0.120) 02/13/18 10:47 TSH 3rd Generation 1.70 mIU/ML (0.46-4.68) 02/12/18 20:42 - Hospital Course Hospital Course: 67 years old female with hx of Dm II, Asthma, HTN and HLD who comes with two days of intermittent palpitation. No Chest pain nor tightness, No SOB except when she gets an Asthma attack. No diaphoresis, nausea, vomits. No illegal drugs nor alcohol. She has seen her Church Administrator Dr Torres in the past for chest pain, where a stress test was done and this was within normal limits. 1. Palpitation unclear etiology may be sec to medication - pt uses [facility] for her Asthma - consulted cardiology Dr Bahena- cleared pt for d/c - Telemetry monitoring- did not show any abnormal rhythm - advised pt to ff up with her oil tester for further outpt work up - TSH normal , Troponin negative - EKG : no change, no abn rhythm 2. Hypokalemia prob sec to diuretics - Potassium replaced with KCL - Hold HCTZ 3. Anxiety - cont Xanax 4. HTN - cont Valsartan/ Metoprolol 5. DM II - Insulin Lispro sliding scale according to accucheck -cont Metformin #. DVT prophylaxis with Lovenox #. Code Status: Full, Surrogate Decision maker - daughter Deb Discharge Exam - Head Exam Head Exam: ATRAUMATIC, NORMAL INSPECTION, NORMOCEPHALIC - Eye Exam Eye Exam: EOMI, Normal appearance Pupil Exam: NORMAL ACCOMODATION - ENT Exam ENT Exam: Mucous Membranes Moist, Normal External Ear Exam - Neck Exam Neck exam: Full Rom - Respiratory Exam Respiratory Exam: NORMAL BREATHING PATTERN. absent: Respiratory Distress - Cardiovascular Exam Cardiovascular Exam: REGULAR RHYTHM, +S1, +S2 - GI/Abdominal Exam GI & Abdominal Exam: Normal Bowel Sounds, Soft. absent: Tenderness - Extremities Exam Extremities exam: full ROM, normal capillary refill, pedal pulses present - Back Exam Back exam: FULL ROM. absent: CVA tenderness (L), CVA tenderness (R) - Neurological Exam Neurological exam: Alert, CN II-XII Intact, Oriented x3, Reflexes Normal - Psychiatric Exam Psychiatric exam: Normal Affect, Normal Mood - Skin Skin Exam: Dry, Normal Color, Warm Discharge Plan - Discharge Medications Prescriptions: Valsartan [Diovan] 160 mg PO DAILY #30 tab - Follow Up Plan Condition: GOOD Disposition: HOME/ ROUTINE Instructions: Palpitations (DC) Additional Instructions: ff up with Dr Srivastava and Dr Brian loya Further cardiac work up as outpt
--- NOTE | 2018-02-14 09:57 | CARD ---
APPROVED REPORT EKG Measurement Heart [id number] <Conclusion> Normal sinus rhythm Nonspecific T wave abnormality Abnormal ECG
== END 2018-02-13 15:30 | disposition home or self-care (01) ==
LOC: H.ER 19:33 → H.ERHOLD 22:23 → H.TEL 23:59
PROVIDERS: ADMIT Internal Medicine; ATTEND Internal Medicine
DX: I49.3 Ventricular premature depolarization (principal); E87.6 Hypokalemia; I10 Essential (primary) hypertension; J45.909 Unspecified asthma, uncomplicated; E78.5 Hyperlipidemia, unspecified; E78.00 Pure hypercholesterolemia, unspecified; E11.9 Type 2 diabetes mellitus without complications; F41.9 Anxiety disorder, unspecified; E66.3 Overweight; K29.70 Gastritis, unspecified, without bleeding; Z68.29 Body mass index [BMI] 29.0-29.9, adult; Z79.84 Long term (current) use of oral hypoglycemic drugs; Z88.0 Allergy status to penicillin; Z91.013 Allergy to seafood
CPT/HCPCS: 36415; 71045; 80048; 82948; 83735; 84443; 84484; 85025; 85610; 85730; 99285; G0378; J1650

== ENCOUNTER 2018-03-14 20:37 | Emergency (ER) | payer MEDICARE, MEDICAID ==
[2018-03-14 20:38] VITALS: BMI 32.5
[2018-03-14] MEDS ORDERED: Sodium Chloride 0.9% 1,000 ML IV STA (21:16)
[2018-03-14 21:59] LABS: BASO # 0.1 K/uL (0.0-0.2); BASO % 0.5 % (0.0-2.0); EOS # 0.2 K/uL (0.0-0.7); EOS % 1.9 % (0.0-4.0); HEMOGLOBIN 12.3 g/dL (12.0-16.0); LYMPH # 4.8 K/uL (1.0-4.3); LYMPH % 39.8 % (20.0-40.0); MEAN CELL VOLUME 86.4 fl (81.0-99.0); MEAN CORPUSCULAR HEMOGLOBIN 28.6 pg (27.0-31.0); MEAN CORPUSCULAR HGB CONC 33.1 g/dL (33.0-37.0); MEAN PLATELET VOLUME 7.8 fl (7.2-11.7); MONO # 1.2 K/uL (0.0-0.8); MONO % 10.4 % (0.0-10.0); NEUT # 5.7 K/uL (1.8-7.0); NEUT % 47.4 % (50.0-75.0); NRBC % 0.1 % (0.0-0.0); RBC 4.31 Mil/uL (3.80-5.20); RED CELL DISTRIBUTION WIDTH 14.5 % (11.5-14.5)
[2018-03-14 22:06] LABS: ALB/GLOB RATIO 1.4 (1.0-2.1); ALBUMIN 4.2 g/dL (3.5-5.0); CALCIUM 9.2 mg/dL (8.4-10.2)
[2018-03-14 22:43] LABS: SQUAMOUS EPITHIAL 1 /hpf (0-5); URINE BACTERIA RARE (<OCC); URINE BILIRUBIN NEGATIVE (NEGATIVE); URINE BLOOD SMALL (NEGATIVE); URINE CLARITY CLEAR (Clear); URINE COLOR STRAW (YELLOW); URINE GLUCOSE (UA) NEG (Normal); URINE LEUKOCYTE ESTERASE NEG Leu/uL (Negative); URINE PROTEIN NEGATIVE (NEGATIVE); URINE UROBILINOGEN 0.2-1.0 mg/dL (0.2-1.0)
--- NOTE | 2018-03-15 00:42 | ED PDOC ---
HPI: Female Pain Time Seen by Provider: 03/14/18 21:00 Chief Complaint (Nursing): Female Genitourinary Chief Complaint (Provider): dysuria History Per: Patient History/Exam Limitations: no limitations Onset/Duration Of Symptoms: Days (3) Current Symptoms Are (Timing): Still Present Quality Of Discomfort: "Pain" Additional Complaint(s): 67 y/o female presents with dysuria x 3 days. Associated suprapubic pain and low back pain. Denies fever, nausea/vomiting, chest pain, shortness of breath, palpitations, hematuria, vaginal bleeding/discharge Past Medical History Reviewed: Historical Data, Nursing Documentation, Vital Signs Vital Signs: Last Vital Signs Temp 98.0 F 03/14/18 20:57 Pulse 57 L 03/14/18 20:57 Resp 16 03/14/18 20:57 BP 137/73 03/14/18 20:57 Pulse Ox 97 03/14/18 20:57 - Medical History PMH: Anxiety, Asthma, Diabetes, Gastritis, Gall Bladder Disease, HTN, Hypercholesterolemia Denies: Alzheimer's Disease, Anemia, Arthritis, Atrial Fibrillation, Bipolar Disorder, Bronchitis, CAD, Cardia Arrhythmia, CHF, COPD, Crohn's Disease, Dementia, Depression, Diverticulitis, Emphysema, Fractures, HIV, Hyperthyroidism , Hypothyroidism, Kidney Stones, Migraine, Mitral Valve Prolapse, Multiple Sclerosis, Osteoporosis, Pancreatitis, Paranoia, Parkinson's Disease, Peripheral Edema, Pneumonia, Post Traumatic Stress Disorder, Pulmonary Embolism , Chronic Kidney Disease, Rheumatoid Arthritis, Schizophrenia, Seizures, Sickle Cell Disease, Sexually Transmitted Disease, Sleep Apnea, TIA - Surgical History Surgical History: Appendectomy, Cholecystectomy Denies: CABG, Carotid Endarterectomy, Coronary Stent, Pacemaker, Tonsillectomy - Family History Family History: States: Unknown Family Hx - Home Medications Home Medications: Ambulatory Orders Medication Instructions Recorded Alprazolam [Xanax] 0.25 mg PO BID PRN 12/22/16 Metoprolol Succinate 100 mg PO DAILY 12/22/16 metFORMIN [glucOPHAGE] 500 mg PO DAILY 12/22/16 Esomeprazole Magnesium [Nexium] 40 mg PO DAILY 06/20/17 Fluticasone Propionate [Flonase] 2 spray LAN DAILY PRN 06/20/17 Rosuvastatin Calcium [Crestor] 10 mg PO DAILY 06/20/17 Valsartan [Diovan] 160 mg PO DAILY #30 tab 02/13/18 Nitrofurantoin Macrocrystals 100 mg PO BID #13 cap 03/15/18 [Macrobid] - Allergies Allergies/Adverse Reactions: Allergies Allergy/AdvReac Type Severity Reaction Status Date / Time Penicillins Allergy RASH Verified 02/12/18 19:43 FISH AdvReac RASH Verified 02/12/18 19:43 Review of Systems ROS Statement: Except As Marked, All Systems Reviewed And Found Negative Gastrointestinal: Positive for: Abdominal Pain Genitourinary Female: Positive for: Dysuria Musculoskeletal: Positive for: Back Pain Physical Exam - Reviewed Nursing Documentation Reviewed: Yes Vital Signs Reviewed: Yes - Physical Exam Appears: Positive for: Well, Non-toxic, No Acute Distress Head Exam: Positive for: ATRAUMATIC, NORMAL INSPECTION, NORMOCEPHALIC Skin: Positive for: Normal Color Eye Exam: Positive for: Normal appearance ENT: Positive for: Normal ENT Inspection Cardiovascular/Chest: Positive for: Regular Rate, Rhythm Respiratory: Positive for: Normal Breath Sounds Gastrointestinal/Abdominal: Positive for: Bowel Sounds, Soft, Tenderness ( suprapubic discomfort to palpation) Back: Positive for: Normal Inspection, Muscle Spasm (lspine paravertebral tenderness). Negative for: L CVA Tenderness, R CVA Tenderness, Decreased ROM Extremity: Positive for: Normal ROM Neurologic/Psych: Positive for: Alert, Oriented - Laboratory Results Result Diagrams: 03/14/18 21:40 03/14/18 21:40 - ECG O2 Sat by Pulse Oximetry: 97 - Progress ED Course And Treament: labs, urine, CT renal protocol, IV toradol EXAM: CT Abdomen and Pelvis Without Intravenous Contrast EXAM DATE/TIME: 03/14/2018 10:57 PM CLINICAL HISTORY: 67 years old, female; Pain; Other: Backpain; Prior surgery; Surgery date: 6+ months; Surgery type: Gall bladder removed. Appendectomy; Additional info: Back pain, dysuria TECHNIQUE: Axial computed tomography images of the abdomen and pelvis without intravenous contrast. All CT scans at this facility use at least one of these dose optimization techniques: automated exposure control; mA and/or kV adjustment per patient size (includes targeted exams where dose is matched to clinical indication); or iterative reconstruction. COMPARISON: CT - ABDOMEN^ABD_ROUTINE_W (ADULT) 2011-09-23 00:21 FINDINGS: Lung bases: Left lower lobe 5 mm pulmonary nodule. ABDOMEN: Liver: Unremarkable. Gallbladder and bile ducts: Cholecystectomy. No ductal dilation. Pancreas: Unremarkable. No ductal dilation. Spleen: Unremarkable. No splenomegaly. Adrenals: Unremarkable. No mass. Kidneys and ureters: Few bilateral foci of renal cortical scarring. No renal or ureteral calculi. No hydronephrosis. No perinephric edema. Stomach and bowel: Unremarkable. No obstruction. No mucosal thickening. PELVIS: Appendix: No findings to suggest acute appendicitis. Bladder: Unremarkable. No stones. Reproductive: Hysterectomy. ABDOMEN and PELVIS: Intraperitoneal space: Unremarkable. No free air. No significant fluid collection. Bones/joints: Degenerative changes are present in the lower lumbar spine. No acute fracture. No dislocation. Soft tissues: Unremarkable. Vasculature: Unremarkable. No abdominal aortic aneurysm. Lymph nodes: Unremarkable. No enlarged lymph nodes. IMPRESSION: No acute findings. Patient educated on findings, will treat for clinical UTI with macrobid ADvised follow up PMD 2-3 days. Tylenol/Ibuprofen PRN back pain Return precautions given Disposition - Clinical Impression Clinical Impression: UTI (urinary tract infection) - Patient ED Disposition Is Patient to be Admitted: No Counseled Patient/Family Regarding: Studies Performed, Diagnosis, Need For Followup, Rx Given - Disposition Disposition: Routine/Home Disposition Time: 00:42 Condition: IMPROVED Prescriptions: Nitrofurantoin Macrocrystals [Macrobid] 100 mg PO BID #13 cap Instructions: Urinary Tract Infections in Adults Forms: [employer] (Danish) Print Language: TAJIK
[2018-03-15 01:17] VITALS: BP 150/79; PULSE 59; RESP 14; TEMP 97.6; O2SAT 99
--- NOTE | 2018-03-15 10:54 | CT ---
Date of service: 03/14/2018 PROCEDURE: CT Abdomen and Pelvis without intravenous contrast HISTORY: back pain, dysuria COMPARISON: 09/23/2011, and 02/26/2011 CT studies. TECHNIQUE: Technique. Contrast dose: No IV or oral contrast administered. Radiation dose: Total exam DLP = 623 mGy-cm. This CT exam was performed using one or more of the following dose reduction techniques: Automated exposure control, adjustment of the mA and/or kV according to patient size, and/or use of iterative reconstruction technique. FINDINGS: LOWER THORAX: A 4 mm peripheral solid appearing nodule in the lateral left lower lobe contiguous with pleural surface noted (series 5, image 7). A 1 to 2 mm similarly peripheral nearly pleural-based right lower lobe lateral tiny nodule also apparent at these findings are probably present on the prior CT abdomen exam from 02/26/2011 but they are much less conspicuous on the prior study. LIVER: Unremarkable. No gross lesion or ductal dilatation. GALLBLADDER AND BILE DUCTS: Postcholecystectomy clips in gallbladder fossa. No suspect bile duct dilatation. PANCREAS: Unremarkable. No gross lesion or ductal dilatation. SPLEEN: Unremarkable. ADRENALS: Unremarkable. No mass. KIDNEYS AND URETERS: Similar-appearing small areas of bilateral cortical scarring. No hydronephrosis. No interval renal or ureteral calculi VASCULATURE: Left high hemipelvic phleboliths series 2, image 61 unchanged with 02/26/2011. No aortic aneurysm. BOWEL: Moderate stool retention. Redundant colon. No obstruction. No gross mural thickening. APPENDIX: Nonvisualized. No pericecal inflammatory change PERITONEUM: Unremarkable. No free fluid. No free air. LYMPH NODES: Unremarkable. No enlarged lymph nodes. BLADDER: Unremarkable. No bladder calculi REPRODUCTIVE: Unremarkable. BONES: No acute fracture. Benign-appearing sclerotic lesion right iliac bone bordering SI joint unchanged since 2010 L5-S1 degenerative disc disease with discogenic endplate changes. Facet hypertrophic arthrosis here is well OTHER FINDINGS: None. IMPRESSION: No urolithiasis. No hydronephrosis or hydroureter. Bilateral small focal areas of chronic appearing renal scarring -similar. Sub cm bibasilar lung peripheral solid-appearing nodules -these are believe stable since 2010 allowing for differences in technique Concordant results (preliminary interpretation) provided by [facility].
== END 2018-03-15 01:20 | disposition home or self-care (01) ==
LOC: H.ER 20:37
DX: N39.0 Urinary tract infection, site not specified (principal); E11.9 Type 2 diabetes mellitus without complications; E78.00 Pure hypercholesterolemia, unspecified; I10 Essential (primary) hypertension; J45.909 Unspecified asthma, uncomplicated; Z79.84 Long term (current) use of oral hypoglycemic drugs; Z88.0 Allergy status to penicillin
CPT/HCPCS: 74176; 80053; 81003; 85025; 87086; 96365; 99284; J1885; J7030

== ENCOUNTER 2018-04-02 20:52 | Emergency (ER) | payer MEDICARE, MEDICAID ==
[2018-04-02 21:07] VITALS: BMI 30.8
[2018-04-02 21:09] VITALS: TEMP 98.2
[2018-04-02 22:15] LABS: BASO # 0.1 K/uL (0.0-0.2); BASO % 0.8 % (0.0-2.0); EOS # 0.3 K/uL (0.0-0.7); HEMOGLOBIN 12.1 g/dL (12.0-16.0); LYMPH % 40.6 % (20.0-40.0); MEAN CELL VOLUME 85.8 fl (81.0-99.0); MEAN CORPUSCULAR HEMOGLOBIN 29.5 pg (27.0-31.0); MEAN CORPUSCULAR HGB CONC 34.4 g/dL (33.0-37.0); MEAN PLATELET VOLUME 7.2 fl (7.2-11.7); MONO # 1.2 K/uL (0.0-0.8); MONO % 11.9 % (0.0-10.0); NEUT # 4.3 K/uL (1.8-7.0); NEUT % 43.7 % (50.0-75.0); RBC 4.11 Mil/uL (3.80-5.20); RED CELL DISTRIBUTION WIDTH 14.5 % (11.5-14.5); WHITE BLOOD COUNT 9.9 K/uL (4.8-10.8)
[2018-04-02 22:41] LABS: ALB/GLOB RATIO 1.4 (1.0-2.1); ALBUMIN 4.2 g/dL (3.5-5.0); ALT/SGPT 37 U/L (9-52); AST/SGOT 44 U/L (14-36); BLOOD UREA NITROGEN 17 mg/dl (7-17); CALCIUM 9.2 mg/dL (8.4-10.2); GFR NON-AFRICAN AMERICAN 55
[2018-04-02] MEDS ORDERED: Sodium Chloride 0.9% 500 ML IV STA (23:08)
--- NOTE | 2018-04-02 23:10 | ED PDOC ---
Syncope/Near Syncope/Dizziness Time Seen by Provider: 04/02/18 21:19 Chief Complaint (Nursing): Dizziness/Lightheaded Chief Complaint (Provider): Dizziness History Per: Patient History/Exam Limitations: no limitations Onset/Duration Of Symptoms: Days (x3), Worse Since (today) Current Symptoms Are (Timing): Still Present Additional Complaint(s): 67 year old female, with pmhx of htn, diabetes, and high cholesterol, presents to the ED for evaluation of dizziness. Patient states that she has been experiencing a room spinning sensation for the past three days associated with nausea, initially mild but more intense and constant today. She notes the dizziness is unrelated to position and is not worse with head movement. Otherwise: (-) lightheadedness, (-) trauma, (-) headache, (-) tinnitus, (-) hearing loss, (-) chest pain, (-) shortness of breath, (-) cough, (-) palpitations, (-) dyspnea, (-) fever, (-) vomiting, (-) diarrhea, (-) syncope, ( -) GI bleeding. PMD: Edilberto Srivastava Past Medical History Reviewed: Historical Data, Nursing Documentation, Vital Signs Vital Signs: Last Vital Signs Temp 98.2 F 04/02/18 21:07 Pulse 63 04/02/18 21:07 Resp 18 04/02/18 21:07 BP 129/70 04/02/18 21:07 Pulse Ox 99 04/02/18 21:07 - Medical History PMH: Anxiety, Asthma, Diabetes, Gastritis, Gall Bladder Disease, HTN, Hypercholesterolemia Denies: Alzheimer's Disease, Anemia, Arthritis, Atrial Fibrillation, Bipolar Disorder, Bronchitis, CAD, Cardia Arrhythmia, CHF, COPD, Crohn's Disease, Dementia, Depression, Diverticulitis, Emphysema, Fractures, HIV, Hyperthyroidism , Hypothyroidism, Kidney Stones, Migraine, Mitral Valve Prolapse, Multiple Sclerosis, Osteoporosis, Pancreatitis, Paranoia, Parkinson's Disease, Peripheral Edema, Pneumonia, Post Traumatic Stress Disorder, Pulmonary Embolism , Chronic Kidney Disease, Rheumatoid Arthritis, Schizophrenia, Seizures, Sickle Cell Disease, Sexually Transmitted Disease, Sleep Apnea, TIA - Surgical History Surgical History: Appendectomy, Cholecystectomy Denies: CABG, Carotid Endarterectomy, Coronary Stent, Pacemaker, Tonsillectomy - Family History Family History: States: Unknown Family Hx - Social History Current smoker - smoking cessation education provided: No Alcohol: None Drugs: Denies - Home Medications Home Medications: Ambulatory Orders Medication Instructions Recorded Alprazolam [Xanax] 0.25 mg PO BID PRN 12/22/16 Metoprolol Succinate 100 mg PO DAILY 12/22/16 metFORMIN [glucOPHAGE] 500 mg PO DAILY 12/22/16 Esomeprazole Magnesium [Nexium] 40 mg PO DAILY 06/20/17 Fluticasone Propionate [Flonase] 2 spray LAN DAILY PRN 06/20/17 Rosuvastatin Calcium [Crestor] 10 mg PO DAILY 06/20/17 Valsartan [Diovan] 160 mg PO DAILY #30 tab 02/13/18 Sulfamethoxazole/Trimethoprim 1 tab PO BID #10 tab 03/15/18 [Bactrim DS 800 mg-160 mg] Meclizine [Meclizine*] 25 mg PO Q6 PRN #20 tab 04/03/18 - Allergies Allergies/Adverse Reactions: Allergies Allergy/AdvReac Type Severity Reaction Status Date / Time Penicillins Allergy RASH Verified 04/02/18 21:06 FISH AdvReac RASH Verified 04/02/18 21:06 Review of Systems ROS Statement: Except As Marked, All Systems Reviewed And Found Negative Constitutional: Negative for: Fever ENT: Negative for: Other (tinnitus; hearing loss;) Cardiovascular: Negative for: Chest Pain, Palpitations, Light Headedness Respiratory: Negative for: Cough, Shortness of Breath, Other (dyspnea) Gastrointestinal: Positive for: Nausea. Negative for: Vomiting, Diarrhea, Other (GI bleed) Neurological: Positive for: Dizziness (room spinning sensation, worsening). Negative for: Headache, Other (syncope) Physical Exam - Reviewed Nursing Documentation Reviewed: Yes Vital Signs Reviewed: Yes - Physical Exam Comments: GENERALIZED APPEARANCE: Patient is awake, alert, oriented x3 in no acute distress. SKIN: Warm, dry; (-) cyanosis. HEAD: (-) scalp swelling or tenderness. EYES: (-) conjunctival pallor. ENMT: Mucous membranes moist. NECK: (-) tenderness, (-) stiffness, (-) lymphadenopathy. CHEST AND RESPIRATORY: (-) rales, (-) rhonchi, (-) wheezes; breath sounds equal bilaterally. HEART AND CARDIOVASCULAR: (-) irregularity; (-) murmur, (-) gallop. ABDOMEN AND GI: Soft; (-) distention, (-) tenderness, (-) rebound, (-) guarding , (-) palpable masses, (-) flank tenderness. EXTREMITIES: (-) deformity; (-) edema. Distal pulses: present. NEURO AND PSYCH: Mental status as above. np: (-) nystagmus; Pupils EOMI, (-) facial asymmetry; (-) dysarthria; tongue and uvula midline. Strength symmetric. Gait: normal. - Laboratory Results Result Diagrams: 04/02/18 21:45 04/02/18 21:45 - ECG O2 Sat by Pulse Oximetry: 99 (RA) Pulse Ox Interpretation: Normal Medical Decision Making Medical Decision Making: Time: 21:43 Initial Impression: dizziness Initial Plan: --CT Head w/o contrast --EKG --CMP --Trop I --Urine dipstick --CBC with differential --CXR --Glucose, POC --Meclizine 25 mg PO --Normal saline IV FS : 83 Udip : (-) EKG : NSR at 60 bpm, no acute ST changes, as read by PA CXR : NAD, as read by PA Labs reviewed : Na 130 CT head : FINDINGS: Brain: Unremarkable. No hemorrhage. No significant white matter disease. No edema. Ventricles: Unremarkable. No ventriculomegaly. Bones/joints: Unremarkable. No acute fracture. Soft tissues: Unremarkable. Sinuses: Unremarkable as visualized. No acute sinusitis. Mastoid air cells: Unremarkable as visualized. No mastoid effusion. IMPRESSION: No evidence of an acute intracranial abnormality. Dictated and Authenticated by: Layne Smith MD 04/02/2018 11:00 PM Eastern Time ([place] & [place]) HR consistently in the 50's, previous visits reviewed and the patient's HR is always between 50s-60s. On re-evaluation, patient reports improvement of symptoms, denies any headache, dizziness, chest pain or SOB at this time. On exam, patient remains AAOx3, in no acute distress. Repeat neuro exam shows no focal findings. Patient able to ambulate with a normal steady gait. P 60 BP 148/60. Diagnostic results d/w the patient in great detail. Diagnosis of vertigo d/w the patient. Based on history, exam and diagnostic results, plan will be for outpatient follow up. 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 Advised to take medication as prescribed. Return to the emergency room at any time for any new or worsening symptoms. Patient states she fully agrees with and understands discharge instructions. States that she agrees with the plan and disposition. Verbalized and repeated discharge instructions and plan. I have given the patient opportunity to ask any additional questions. Scribe Attestation: Documented by Danay Chappell, acting as a scribe for Tracy Newberry PA-C. Provider Scribe Attestation: All medical record entries made by the Scribe were at my direction and personally dictated by me. I have reviewed the chart and agree that the record accurately reflects my personal performance of the history, physical exam, medical decision making, and the department course for this patient. I have also personally directed, reviewed, and agree with the discharge instructions and disposition. Disposition - Clinical Impression Clinical Impression: Vertigo - Patient ED Disposition Is Patient to be Admitted: No Counseled Patient/Family Regarding: Studies Performed, Diagnosis, Need For Followup - Disposition Disposition: Routine/Home Disposition Time: 01:15 Condition: STABLE Additional Instructions: Thank you for letting us take care of you today. You were treated for vertigo. The emergency medical care you received today was directed towards the acute presenting symptoms. If you were prescribed any medication, please fill it and give as directed. It may take several days for your symptoms to resolve. Return to the Emergency Department at any time if symptoms worsen, do not improve, or if any other problems arise. Please contact your primary care doctor or roll forming machine set up mechanic in 2 days for re- evaluation and follow up. Bring any paperwork you were given at discharge with you along with any medications to your follow up visit. Our treatment cannot replace ongoing medical care by a primary care provider (PCP) outside of the emergency department. [facility]. Prescriptions: Meclizine [Meclizine*] 25 mg PO Q6 PRN #20 tab PRN Reason: Dizziness Instructions: Vertigo (a Type of Dizziness) Forms: [employer] Connect (Sinhala) Print Language: NEPALI - PA / PRICING MANAGER / Resident Statement MD/DO has reviewed & agrees with the documentation as recorded.
[2018-04-03 01:44] VITALS: BP 148/60; PULSE 60; RESP 12
[2018-04-03 03:22] VITALS: O2SAT 99
--- NOTE | 2018-04-03 08:26 | RAD ---
Date of service: 04/02/2018 HISTORY: dizziness COMPARISON: Chest radiographs 06/20/2018. FINDINGS: LUNGS: No active pulmonary disease. PLEURA: No significant pleural effusion identified, no pneumothorax apparent. CARDIOVASCULAR: Normal. OSSEOUS STRUCTURES: No significant abnormalities. VISUALIZED UPPER ABDOMEN: Normal. OTHER FINDINGS: None. IMPRESSION: No interval acute cardiopulmonary disease appreciated.
--- NOTE | 2018-04-03 10:50 | CT ---
Date of service: 04/02/2018 PROCEDURE: CT HEAD WITHOUT CONTRAST. HISTORY: dizziness COMPARISON: Noncontrast head CT 09/22/2011. TECHNIQUE: Axial computed tomography images were obtained through the head/brain without intravenous contrast. Radiation dose: Total exam DLP = 790.47 mGy-cm. This CT exam was performed using one or more of the following dose reduction techniques: Automated exposure control, adjustment of the mA and/or kV according to patient size, and/or use of iterative reconstruction technique. FINDINGS: HEMORRHAGE: No intracranial hemorrhage. BRAIN: Normal villalta-white matter differentiation and density are appreciated throughout the cerebrum and cerebellum with the brainstem appearing unremarkable as well. There is no mass effect. There is no suspicious extra-axial fluid collection and the midline brain anatomy appears diffusely unremarkable. VENTRICLES: Unremarkable. No hydrocephalus. CALVARIUM: No destructive bony lesion or displaced fracture identified including through the skullbase. PARANASAL SINUSES: Unremarkable as visualized. No significant inflammatory changes. MASTOID AIR CELLS: Unremarkable as visualized. No inflammatory changes. OTHER FINDINGS: None. IMPRESSION: Stable unremarkable noncontrast head CT. Concordant preliminary report from [facility], 04/02/2018.
--- NOTE | 2018-04-03 17:44 | CARD ---
APPROVED REPORT Date of service: 04/02/2018 EKG Measurement Heart [id number] <Conclusion> Normal sinus rhythm Minimal voltage criteria for LVH, may be normal variant Borderline ECG
--- NOTE | 2018-04-03 17:44 | CARD ---
APPROVED REPORT Date of service: 04/02/2018 EKG Measurement Heart [id number] <Conclusion> Sinus bradycardia Minimal voltage criteria for LVH, may be normal variant Borderline ECG
== END 2018-04-03 01:44 | disposition home or self-care (01) ==
LOC: H.ER 20:52
DX: R42 Dizziness and giddiness (principal); E11.9 Type 2 diabetes mellitus without complications; Z79.84 Long term (current) use of oral hypoglycemic drugs; E78.00 Pure hypercholesterolemia, unspecified; I10 Essential (primary) hypertension; Z88.0 Allergy status to penicillin
CPT/HCPCS: 70450; 71045; 80053; 82948; 84484; 85025; 93005; 96360; 96361; 99285; J7030

== ENCOUNTER 2018-06-05 12:04 | Emergency (ER) | payer MEDICARE, MEDICAID ==
[2018-06-05 12:04] VITALS: BMI 30.8
[2018-06-05 12:31] VITALS: BP 151/75; PULSE 66; RESP 20; TEMP 97; O2SAT 96
--- NOTE | 2018-06-05 12:49 | ED PDOC ---
HPI: CCC, URI, Sore Throat Time Seen by Provider: 06/05/18 12:36 Chief Complaint (Nursing): Flu-like Symptoms Chief Complaint (Provider): cough History Per: Patient Onset/Duration Of Symptoms: Days Current Symptoms Are (Timing): Still Present Associated Symptoms: Cough. denies: Sputum Additional Complaint(s): Marla George is a 68 year old female, with a past medical history of asthma, diabetes and HTN, who presents to the emergency department complaining of nonproductive cough. Patient was seen by PMD and started on Zithromax but is unsure if she has improved or not. Patient is still coughing but denies any chest pain or shortness of breath. No further medical complaints. PMD: None provided. Past Medical History Reviewed: Historical Data, Nursing Documentation, Vital Signs Vital Signs: Last Vital Signs Temp 97 F L 06/05/18 12:29 Pulse 66 06/05/18 12:29 Resp 20 06/05/18 12:29 BP 151/75 H 06/05/18 12:29 Pulse Ox 96 06/05/18 12:29 - Medical History PMH: Anxiety, Asthma, Diabetes, Gastritis, Gall Bladder Disease, HTN, Hypercholesterolemia Denies: Alzheimer's Disease, Anemia, Arthritis, Atrial Fibrillation, Bipolar Disorder, Bronchitis, CAD, Cardia Arrhythmia, CHF, COPD, Crohn's Disease, Demen tia, Depression, Diverticulitis, Emphysema, Fractures, HIV, Hyperthyroidism, Hypothyroidism, Kidney Stones, Migraine, Mitral Valve Prolapse, Multiple Sclerosis, Osteoporosis, Pancreatitis, Paranoia, Parkinson's Disease, Peripheral Edema, Pneumonia, Post Traumatic Stress Disorder, Pulmonary Embolism, Chronic Kidney Disease, Rheumatoid Arthritis, Schizophrenia, Seizures, Sickle Cell Disease, Sexually Transmitted Disease, Sleep Apnea, TIA - Surgical History Surgical History: Appendectomy, Cholecystectomy Denies: CABG, Carotid Endarterectomy, Coronary Stent, Pacemaker, Tonsillectomy - Family History Family History: States: Unknown Family Hx - Home Medications Home Medications: Ambulatory Orders Medication Instructions Recorded Alprazolam [Xanax] 0.25 mg PO BID PRN 12/22/16 Metoprolol Succinate 100 mg PO DAILY 12/22/16 metFORMIN [glucOPHAGE] 500 mg PO DAILY 12/22/16 Esomeprazole Magnesium [Nexium] 40 mg PO DAILY 06/20/17 Fluticasone Propionate [Flonase] 2 spray LAN DAILY PRN 06/20/17 Rosuvastatin Calcium [Crestor] 10 mg PO DAILY 06/20/17 Valsartan [Diovan] 160 mg PO DAILY #30 tab 02/13/18 Sulfamethoxazole/Trimethoprim 1 tab PO BID #10 tab 03/15/18 [Bactrim DS 800 mg-160 mg] Meclizine [Meclizine*] 25 mg PO Q6 PRN #20 tab 04/03/18 Benzonatate [Tessalon Perle] 100 mg PO TID #10 capsule 06/05/18 - Allergies Allergies/Adverse Reactions: Allergies Allergy/AdvReac Type Severity Reaction Status Date / Time Penicillins Allergy RASH Verified 06/05/18 12:29 FISH AdvReac RASH Verified 06/05/18 12:29 Review of Systems ROS Statement: Except As Marked, All Systems Reviewed And Found Negative Cardiovascular: Negative for: Chest Pain Respiratory: Positive for: Cough (nonproductive). Negative for: Shortness of Breath Physical Exam - Reviewed Nursing Documentation Reviewed: Yes Vital Signs Reviewed: Yes - Physical Exam Appears: Positive for: No Acute Distress Head Exam: Positive for: ATRAUMATIC, NORMOCEPHALIC Skin: Positive for: Normal Color, Warm, Dry Eye Exam: Positive for: Normal appearance, EOMI, PERRL Neck: Positive for: Painless ROM Cardiovascular/Chest: Positive for: Regular Rate, Rhythm. Negative for: Murmur Respiratory: Positive for: Normal Breath Sounds. Negative for: Respiratory Distress Gastrointestinal/Abdominal: Positive for: Normal Exam, Soft. Negative for: Tenderness, Guarding, Rebound Back: Positive for: Normal Inspection. Negative for: L CVA Tenderness, R CVA Tenderness, Vertebral Tenderness Extremity: Positive for: Normal ROM (upper and lower extremities). Negative for: Deformity, Swelling Neurologic/Psych: Positive for: Alert, Oriented, Gait (steady) - ECG O2 Sat by Pulse Oximetry: 96 (RA) Pulse Ox Interpretation: Normal Medical Decision Making Medical Decision Making: Time: 12:36 Initial Plan: --Chest two views (PA/LAT) [RAD] --Reevaluation Scribe Attestation: Documented by Donnell England, acting as a scribe for Enrique Vicente MD. Provider Scribe Attestation: All medical record entries made by the Scribe were at my direction and personally dictated by me. I have reviewed the chart and agree that the record accurately reflects my personal performance of the history, physical exam, medical decision making, and the department course for this patient. I have also personally directed, reviewed, and agree with the discharge instructions and disposition. Disposition - Clinical Impression Clinical Impression: Bronchitis - Patient ED Disposition Is Patient to be Admitted: No Counseled Patient/Family Regarding: Studies Performed, Diagnosis, Need For Followup, Rx Given - Disposition Disposition: Routine/Home Disposition Time: 15:56 Condition: FAIR Prescriptions: Benzonatate [Tessalon Perle] 100 mg PO TID #10 capsule Instructions: Acute Bronchitis Forms: [employer] (Lithuanian)
--- NOTE | 2018-06-05 14:03 | RAD ---
Date of service: 06/05/2018 HISTORY: Cough COMPARISON: 04/02/2018 TECHNIQUE: Chest PA and lateral FINDINGS: LUNGS: No active pulmonary disease. PLEURA: No significant pleural effusion identified. No pneumothorax apparent. CARDIOVASCULAR: No radiographic findings to suggest acute or significant cardiovascular disease. OSSEOUS STRUCTURES: No significant abnormalities. VISUALIZED UPPER ABDOMEN: Normal. OTHER FINDINGS: None. IMPRESSION: No active disease. No significant interval change compared to the prior examination(s).
== END 2018-06-05 16:10 | disposition home or self-care (01) ==
LOC: H.ER 12:04
DX: J40 Bronchitis, not specified as acute or chronic (principal); E11.9 Type 2 diabetes mellitus without complications

== ENCOUNTER 2018-07-16 09:37 | Emergency (ER) | payer MEDICARE, MEDICAID ==
[2018-07-16 09:49] VITALS: BMI 31.1
[2018-07-16] MEDS ORDERED: Sodium Chloride 0.9% 1,000 ML IV STA (10:52)
[2018-07-16 11:28] LABS: BASO % 0.3 % (0.0-2.0); EOS # 0.2 K/uL (0.0-0.7); EOS % 2.1 % (0.0-4.0); HEMOGLOBIN 13.3 g/dL (12.0-16.0); LYMPH # 0.7 K/uL (1.0-4.3); LYMPH % 7.8 % (20.0-40.0); MEAN CELL VOLUME 90.4 fl (81.0-99.0); MEAN CORPUSCULAR HEMOGLOBIN 29.3 pg (27.0-31.0); MEAN CORPUSCULAR HGB CONC 32.4 g/dL (33.0-37.0); MEAN PLATELET VOLUME 8.1 fl (7.2-11.7); MONO # 0.5 K/uL (0.0-0.8); MONO % 5.1 % (0.0-10.0); NEUT # 8.1 K/uL (1.8-7.0); NEUT % 84.7 % (50.0-75.0); NRBC % 0.1 % (0.0-0.0); PLATELET COUNT 236 K/uL (130-400); RBC 4.56 Mil/uL (3.80-5.20); RED CELL DISTRIBUTION WIDTH 14.9 % (11.5-14.5); WHITE BLOOD COUNT 9.6 K/uL (4.8-10.8)
[2018-07-16 11:41] LABS: BLOOD UREA NITROGEN 20 mg/dl (7-17); CALCIUM 9.2 mg/dL (8.4-10.2); GFR NON-AFRICAN AMERICAN > 60
--- NOTE | 2018-07-16 11:55 | ED PDOC ---
HPI: Abdomen Time Seen by Provider: 07/16/18 10:17 Chief Complaint (Nursing): GI Problem History Per: Patient (Marla is a 68 year old lady who presents to the ER because of multiple episodes of nonbloody vomiting and diarrhea associated with upper abdominal pain. Patient thinks that it is due the pizza that she had last night, after which her symptoms started. She denies other symptoms) Past Medical History Reviewed: Historical Data, Nursing Documentation, Vital Signs Vital Signs: Last Vital Signs Temp 98.2 F 07/16/18 09:49 Pulse 81 07/16/18 09:49 Resp 20 07/16/18 09:49 BP 147/75 07/16/18 09:49 Pulse Ox 98 07/16/18 09:49 - Medical History PMH: Anxiety, Arthritis, Asthma, Diabetes, Gastritis, Gall Bladder Disease, HTN, Hypercholesterolemia Denies: Alzheimer's Disease, Anemia, Atrial Fibrillation, Bipolar Disorder, Bronchitis, CAD, Cardia Arrhythmia, CHF, COPD, Crohn's Disease, Dementia, Depression, Diverticulitis, Emphysema, Fractures, HIV, Hyperthyroidism, Hypothyroidism, Kidney Stones, Migraine, Mitral Valve Prolapse, Multiple Sclerosis, Osteoporosis, Pancreatitis, Paranoia, Parkinson's Disease, Peripheral Edema, Pneumonia, Post Traumatic Stress Disorder, Pulmonary Embolism, Chronic Kidney Disease, Rheumatoid Arthritis, Schizophrenia, Seizures, Sickle Cell Disease, Sexually Transmitted Disease, Sleep Apnea, TIA - Surgical History Surgical History: Appendectomy, Cholecystectomy Denies: CABG, Carotid Endarterectomy, Coronary Stent, Pacemaker, Tonsillectomy - Family History Family History: States: Unknown Family Hx - Home Medications Home Medications: Ambulatory Orders Medication Instructions Recorded Alprazolam [Xanax] 0.25 mg PO BID PRN 12/22/16 Metoprolol Succinate 100 mg PO DAILY 12/22/16 metFORMIN [glucOPHAGE] 500 mg PO DAILY 12/22/16 Esomeprazole Magnesium [Nexium] 40 mg PO DAILY 06/20/17 Fluticasone Propionate [Flonase] 2 spray LAN DAILY PRN 06/20/17 Rosuvastatin Calcium [Crestor] 10 mg PO DAILY 06/20/17 Valsartan [Diovan] 160 mg PO DAILY #30 tab 02/13/18 Sulfamethoxazole/Trimethoprim 1 tab PO BID #10 tab 03/15/18 [Bactrim DS 800 mg-160 mg] Meclizine [Meclizine*] 25 mg PO Q6 PRN #20 tab 04/03/18 Benzonatate [Tessalon Perle] 100 mg PO TID #10 capsule 06/05/18 Famotidine [Pepcid] 20 mg PO BID #28 tab 07/16/18 Ondansetron [Zofran] 4 mg PO Q8H #9 tab 07/16/18 - Allergies Allergies/Adverse Reactions: Allergies Allergy/AdvReac Type Severity Reaction Status Date / Time Penicillins Allergy RASH Verified 07/16/18 10:08 FISH AdvReac RASH Verified 07/16/18 10:08 Review of Systems ROS Statement: Except As Marked, All Systems Reviewed And Found Negative Gastrointestinal: Positive for: Nausea, Vomiting, Abdominal Pain, Diarrhea Genitourinary Female: Negative for: Dysuria, Frequency Physical Exam - Reviewed Nursing Documentation Reviewed: Yes Vital Signs Reviewed: Yes - Physical Exam Appears: Positive for: Well, Non-toxic, No Acute Distress Head Exam: Positive for: ATRAUMATIC, NORMAL INSPECTION, NORMOCEPHALIC Skin: Positive for: Normal Color, Warm, DRY Eye Exam: Positive for: EOMI, Normal appearance, PERRL ENT: Positive for: Normal ENT Inspection Neck: Positive for: Normal, Painless ROM Cardiovascular/Chest: Positive for: Regular Rate, Rhythm Respiratory: Positive for: CNT, Normal Breath Sounds Gastrointestinal/Abdominal: Positive for: Normal Exam, Soft Back: Positive for: Normal Inspection Extremity: Positive for: Normal ROM Neurologic/Psych: Positive for: Alert, Oriented - Laboratory Results Result Diagrams: 07/16/18 11:10 07/16/18 11:10 - ECG O2 Sat by Pulse Oximetry: 98 - Progress Re-evaluation Time: 13:00 Condition: Re-examined, Improving,but remains with symptoms Disposition - Clinical Impression Clinical Impression: Gastroenteritis - Patient ED Disposition Is Patient to be Admitted: No Doctor Will See Patient In The: Office Counseled Patient/Family Regarding: Diagnosis, Need For Followup, Rx Given - Disposition Disposition: Routine/Home Disposition Time: 13:00 Condition: IMPROVED Prescriptions: Famotidine [Pepcid] 20 mg PO BID #28 tab Ondansetron [Zofran] 4 mg PO Q8H #9 tab Instructions: Gastroenteritis (ED) Forms: [email or web address] (Peruvian) Print Language: [email or web address]
[2018-07-16 12:07] LABS: ALB/GLOB RATIO 1.3 (1.0-2.1); ALBUMIN 4.4 g/dL (3.5-5.0); ALT/SGPT 31 U/L (9-52); AST/SGOT 43 U/L (14-36)
[2018-07-16 13:42] VITALS: TEMP 98.3
[2018-07-16 13:51] VITALS: BP 131/64; PULSE 78; RESP 18; O2SAT 100
[2018-07-16 15:03] LABS: BANDS 1 % (0-2); EOSINOPHIL 2 % (0-7); LYMPHOCYTE 10 % (20-50); MONOCYTE 5 % (0-10); NEUTROPHIL 82 % (42-75); TOTAL CELLS COUNTED 100
[2018-07-16 15:04] LABS: ANISOCYTOSIS SLIGHT; PLATELET ESTIMATE NORMAL (NORMAL)
== END 2018-07-16 13:49 | disposition home or self-care (01) ==
LOC: H.ER 09:37
DX: K52.9 Noninfective gastroenteritis and colitis, unspecified (principal); E11.9 Type 2 diabetes mellitus without complications; Z79.84 Long term (current) use of oral hypoglycemic drugs; Z88.0 Allergy status to penicillin
CPT/HCPCS: 80053; 85025; 96361; 96374; 96375; 99285; J2405; J7030

== ENCOUNTER 2018-11-29 10:33 | Day surgery (SDC) | payer MEDICARE ==
[2018-11-29 11:14] VITALS: RESP 18
[2018-11-29] MEDS ORDERED: Lidocaine Hydrochloride 1% 10 ML ONE (12:38)
--- NOTE | 2018-11-29 12:48 | CP.SDSHP ---
Same Day Surgery H & P - History Proposed Procedure: US guided FNA of thyroid nodules Pre-Op Diagnosis: left thyroid nodules - Allergies Allergies: Allergies Penicillins Allergy (Verified 07/16/18 10:08) RASH FISH Adverse Reaction (Verified 07/16/18 10:08) RASH - Physical Exam Vital Signs: Vital Signs 11/29/18 11/29/18 11:13 11:22 Temperature 98.6 F Pulse Rate 73 73 Respiratory 18 Rate Blood Pressure 143/60 O2 Sat by Pulse 97 Oximetry Mental Status: Alert & Oriented x3 - Impression Impression: Pt with multiple left thyroid nodules. Plan US guided FNA of left upper pole and left lower pole thyroid nodules. Pt. Evaluated Today:Candidate for Anesthesia & Procedure: No - Date & Time Date: 11/29/18 Time: 12:35 Short Stay Discharge - Short Stay Discharge Admitting Diagnosis/Reason for Visit: THYROID NODULES Disposition: HOME/ ROUTINE
--- NOTE | 2018-11-29 12:50 | PCM.SURG1 ---
Surgeon's Initial Post Op Note - Surgeon's Notes Surgeon: Geoffrey Latham MD Dipper Machine Operator: NONE Type of Anesthesia: Local Pre-Operative Diagnosis: Thyroid nodules Operative Findings: US showed multiple large left and right thyroid nodules Post-Operative Diagnosis: Thyroid nodules Operation Performed: US guided FNA of left upper pole and left lower pole thyroid nodules Specimen/Specimens Removed: 25 g FNA x 5 passes per nodule Estimated Blood Loss: EBL {In ML}: 1 Blood Products Given: N/A Drains Used: No Drains Post-Op Condition: Good Date of Surgery/Procedure: 11/29/18 Time of Surgery/Procedure: 12:40
[2018-11-29 14:12] VITALS: BP 133/57; PULSE 60; TEMP 97.8; O2SAT 99
--- NOTE | 2018-12-01 12:02 | CT ---
PROCEDURE: Date of Procedure: 11/29/2018 PROCEDURE: 1. Ultrasound guided FNA of left thyroid nodules, CPT 89536 Medications: 3cc 1% Lidocaine HISTORY: Enlarged left thyroid nodules. TECHNIQUE: Following informed consent and procedure time-out, a limited ultrasound patient's neck confirmed the presence of multiple large thyroid nodules. The largest left upper pole and left lower pole thyroid nodules were selected for fine aspiration. After the patient's neck was prepped and draped in the usual sterile fashion, the skin was anesthetized with 1% lidocaine. Ultrasound-guided fine needle aspiration was then performed of the left upper pole thyroid nodule. This was followed by a FNA of the left lower pole thyroid nodule. A total of 5 passes were made into each nodule with 25 gauge needle under ultrasound guidance. The FNA specimen was sent for routine pathology and genetics. Post biopsy ultrasound showed no hematoma. IMPRESSION: Ultrasound-guided FNA of the left upper pole thyroid nodule and left lower pole thyroid nodule.
== END 2018-11-29 14:25 | disposition home or self-care (01) ==
LOC: H.OPSURG 10:33
PROVIDERS: ATTEND Internal Medicine
DX: E04.1 Nontoxic single thyroid nodule (principal); E11.9 Type 2 diabetes mellitus without complications; E55.9 Vitamin D deficiency, unspecified; I10 Essential (primary) hypertension; Z88.0 Allergy status to penicillin